=== PATIENT | male | born 1960 | race Caucasian/White ===

== ENCOUNTER → 2018-03-30 15:36 | Outpatient (CLI) | payer MEDICARE, SELFPAY ==
[2018-03-30 16:02] LABS: Bacteria Urine None Seen
[2018-03-30 16:53] LABS: Appearance Urine UA CLEAR; Bilirubin Urine UA NEGATIVE (NEGATIVE); Color Urine UA YELLOW; Glucose Urine UA NEGATIVE (Normal); Ketones Urine UA NEGATIVE (NEGATIVE); Leukocyte Esterase Urine UA NEGATIVE (NEGATIVE); Nitrite Urine UA Negative (Negative); Occult Blood Urine UA 2+ (Negative); Protein Urine UA NEGATIVE (Negative); Urobilinogen Urine UA 0.2 E.U./dL (0.2)
[2018-03-30 17:06] LABS: Culture Indicated Urine Cult Not Indicated; RBC Urine 1-5/HPF (0-5/HPF); Squamous Epithelial Cell Urine 0-1 /HPF; WBC Urine 0-1/HPF (0-5/HPF)
== END ==
PROVIDERS: Family Provider Internal Medicine; PCP Internal Medicine; Visit Provider Internal Medicine
DX: R31.9 Hematuria, unspecified (principal)
CPT/HCPCS: 81001

== ENCOUNTER → 2018-04-23 12:47 | Outpatient (CLI) | payer MEDICARE, SELFPAY ==
--- NOTE | 2018-04-23 | DI.CT.S_ITS ---
PROCEDURE: CT ABDOMEN PELVIS WO/W CON INDICATIONS: gross hematuria TECHNIQUE: Optional 5 mm thick noncontrast images acquired from the diaphragm to the symphysis pubis. After the administration of intravenous contrast, 5 mm thick images acquired from the diaphragm to the symphysis pubis after a 10-minute delay. 2 mm thick coronal and sagittal reformats were then performed of the kidneys and ureters. For radiation dose reduction, the following was used: automated exposure control, adjustment of mA and/or kV according to patient size. COMPARISON: None. FINDINGS: Image quality: Excellent. Lung bases: Lung bases are clear. Heart size is normal. Urinary system: Both kidneys are normal in size, without hydronephrosis or nephrolithiasis on pre-contrast images. No perinephric fat stranding. There is normal bilateral renal enhancement. Renal calyces appear normal in morphology when filled with contrast. Opacified portions of both ureters demonstrate normal caliber. Bladder wall thickness is normal. No calcified bladder stones. Bladder is enlarged with foci of calcification. Other solid organs: There is diffuse hepatic fatty infiltration. Liver is normal in size and enhancement. Gallbladder is contracted. Biliary system is non dilated. Pancreas enhances normally. Spleen is normal in size and enhancement. No adrenal nodules. Peritoneum and bowel: There are colonic diverticula scattered throughout the colon. No evidence for acute diverticulitis. Bowel loops demonstrate normal wall thickness and caliber. Normal appendix. No free fluid or air. Nodes and vessels: No retroperitoneal or mesenteric adenopathy by size criteria. Aorta and inferior vena cava are normal in size. Abdominal wall: No ventral hernias. Pelvis: No pathologic free pelvic fluid. No inguinal hernias or adenopathy. Bones: No suspicious bony lesions. No vertebral body compression fractures. IMPRESSION: 1. No CT findings to explain gross hematuria. No renal stones or hydronephrosis. No uroepithelial mass. 2. Small low-density nodules in the left kidney are most likely renal cysts. 3. Hepatic steatosis. 4. Diverticulosis result acute diverticulitis. Dictated by: Africa Ryan M.D. on 04/23/2018 at 14:05 Approved by: Africa Ryan M.D. on 04/23/2018 at 14:11
== END ==
PROVIDERS: Family Provider Internal Medicine; PCP Internal Medicine; Visit Provider Physician Assistant
DX: R31.0 Gross hematuria (principal); K76.0 Fatty (change of) liver, not elsewhere classified; K57.90 Diverticulosis of intestine, part unspecified, without perforation or abscess without bleeding
CPT/HCPCS: 74178; Q9967

== ENCOUNTER → 2018-07-29 16:59 | Outpatient (CLI) | payer MEDICARE, SELFPAY ==
[2018-07-29 17:50] LABS: Creatinine Urine Random 187.8 mg/dL
[2018-07-29 17:55] LABS: Add Manual Diff / Slide Review NO; Basophils Percent Auto 0.6 % (0-2); Eosinophils Percent Auto 1.2 % (2-4); Hemoglobin 14.8 g/dL (13.5-17.5); Lymphocytes Percent Auto 24.3 % (25-40); Mean Corpuscular HGB Conc 33.7 % (30-36); Mean Corpuscular Hemoglobin 32.3 PG (26-34); Mean Corpuscular Volume 95.8 fL (80-100); Monocytes Percent Auto 8.4 % (3-14); Neutrophils Absolute Auto 5800 /uL (3000-5900); Neutrophils Percent Auto 65.5 % (50-75); Platelet Count 290 X10^3/uL (150-400); Red Cell Distribution Width 13.5 % (11.6-14.8); White Blood Cell Count 8.9 X10^3/uL (4.5-11.0)
[2018-07-29 17:55] LABS: Microalbumi Creatinin Ratio Ur 7.9 ug/mg CR (<30); Microalbumin Urine Random 1.5 mg/dL (0-1.6)
[2018-07-29 18:22] LABS: Hemoglobin A1C% w Est Avg Glu 6.8 % (4.0-6.0)
[2018-07-29 18:36] LABS: Alanine Aminotransferase 98 IU/L (21-72); Albumin 4.3 g/dL (3.5-5.0); Albumin Globulin Ratio 1.6 (1.0-2.8); Alkaline Phosphatase 138 U/L (38-126); Aspartate Aminotransferase 89 IU/L (17-59); BUN Creatinine Ratio 14.4 (6-22); Bilirubin Total 0.4 mg/dL (0.2-1.3); Blood Urea Nitrogen 13 mg/dL (9-20); Calcium 9.7 mg/dL (8.4-10.2); Carbon Dioxide 28 mmol/L (22-32); Chloride 100 mmol/L (98-107); Cholesterol 179 mg/dL (140-199); Estimated Glomerular Filt Rate > 60.0 mL/min (>60); Globulin 2.7 g/dL (1.7-4.1); Glucose 130 mg/dL (70-100); HDL Cholesterol 55 mg/dL (40-60); HEMOLYSIS < 15 (0-50); LDL Cholesterol Calculated 91 mg/dL (<100); Potassium 4.6 mmol/L (3.4-5.1); Sodium 139 mmol/L (137-145); Triglycerides 165 mg/dL (35-150)
[2018-07-29 19:07] LABS: Prostate Specific Antigen Scrn 1.76 ng/mL (0.1-4.0)
== END ==
PROVIDERS: PCP Internal Medicine; Visit Provider Internal Medicine
DX: E11.9 Type 2 diabetes mellitus without complications (principal); E78.2 Mixed hyperlipidemia; I10 Essential (primary) hypertension; Z12.5 Encounter for screening for malignant neoplasm of prostate
CPT/HCPCS: 36415; 80053; 80061; 82043; 82570; 83036; 85025; G0103

== ENCOUNTER 2018-09-28 10:12 | Day surgery (SDC) | payer MEDICARE, SELFPAY ==
[2018-09-28] VITALS (10 sets, daily range): BP systolic 82–155; BP diastolic 60–102; PULSE 68–96; RESP 14–20; TEMP 36–36.9; O2SAT 91–100; BMI 21.9
--- NOTE | 2018-09-28 | PATH_ITS ---
[facility] Accession Number: [id number] . 01 Material submitted: . PART A: ANTRAL BIOPSIES PART B: SIGMOID POLYP AT 25CM . 02 Diagnosis: A. Antrum, Biopsies: Helicobacter pylori gastritis. Helicobacter organisms seen on H/E stain. Negative for intestinal metaplasia, dysplasia or malignancy. . B. Sigmoid Colon Polyp at 25 cm: Hyperplastic polyp. MRV/09/29/2018 . 02 Electronically signed: . Colton Bishop MD, PhD, Pathologist NPI- [id number] . 01 Gross description: . Received two formalin-filled containers, both labeled with the patient's name: . A. In a container labeled antral, are three 0.1-0.3 cm portions of tissue, entirely submitted in cassette A. B. In a container labeled sigmoid polyp at 25 cm, are four 0.2-0.5 cm portions of tissue, entirely submitted in cassette B. ([id number]) /FRR . 02 Pathologist provided ICD-10: K29.70, B96.81, K63.5 . 02 CPT . 027716, 084900 Performed at: 01 [facility] [address] [facility], [place], [place] [id number] MD Florentino Myles MD Phone: [phone] Performed at: 02 [facility] [address] [place], [place] [id number] MD Maile Granados MD Phone: [phone]
[2018-09-28] MEDS: LACTATED RINGERS 1,000 ML 42 ML IV (10:41)
--- NOTE | 2018-09-28 10:44 | PM.PREOP ---
Pre-operative Note Interval Note Pre-op Check: Yes History & Physical Reviewed by Physician and Yes Exam Performed Changes: No H&P completed within 30 days and has changed as indicated here:: Patient seen and examined again in the preoperative area today. History and physical examination as documented on September 08, 2018 has not changed. Proceed with EGD and colonoscopy under anesthesia today as planned.
[2018-09-28] MEDS: MIDAZOLAM 2 MG/2 ML VIAL IV (10:53)
--- NOTE | 2018-09-28 11:30 | PM.OP.1 ---
Operative Date/Time/Diagnoses Date of procedure: 09/28/18 Time of procedure: 11:30 Pre-op diagnosis: Dysphagia and colorectal screening Post-op diagnosis: other (Mild gastritis and sigmoid colon polyp in conjunction with pandiverticulosis but otherwise normal studies) Procedure & Clinicians Procedure: 1. Esophagogastroduodenoscopy with cold forceps biopsies 2. Colonoscopy with cold forceps polypectomy Same procedure as scheduled: Yes Indications: 58-year-old male who presented with dysphagia and mild hoarseness. He also requires colorectal screening by age criteria. He was recommended undergo EGD and colonoscopy. Because of his significant cardiac disease and alcohol habit he was recommended to undergo the procedure with anesthesia. Surgeon: Esvin Jarvis Click Yes if Unassisted: Yes Anesthesia Type: General Operative Notes Findings: 1. Normal larynx 2. Normal esophagus without evidence of stricture or esophagitis. No neoplasms. 3. Z-line at 36 cm from the incisors 4. Mild antral gastritis but no evidence of gastric ulcers or neoplasm 5. Normal pylorus and duodenum to the 2nd portion 6. No significant hiatal hernia 7. Beck diverticulosis but without inflammation or stricture. No hemorrhage 8. Polyp at the sigmoid colon approximately 25 cm from anal verge removed with cold forceps 9. Grade 3 internal hemorrhoids without inflammation or thrombosis currently 10. No obvious pathology to explain dysphagia. Consider dysmotility. Closure Type: not applicable Specimen(s): other (1. Antral biopsies 2. Sigmoid colon polyp at 25 cm) Implants & Drains: None Estimated Blood Loss (mL): 10 Blood products transfused: none Procedure in detail: After obtaining informed consent the patient was brought to the operating room and left supine on the gurney. He was placed in left lateral decubitus position and a bite block was inserted. SCOAP time out was performed per standard protocol. Anesthesia was induced. Gastroscope was inserted through the bite block over the tongue to the upper esophageal sphincter which was readily intubated. Under direct visualization of the esophageal lumen the scope was advanced into the stomach which was insufflated easily with air. Pylorus was patent and easily intubated. Scope was advanced to the distal 2nd portion the duodenum. Scope was slowly withdrawn and the bowel was meticulously and circumferentially examined. Findings are as above. Scope was removed and this portion the procedure was terminated. Bite block was removed. Attention was turned to colonoscopy. Digital rectal examination was performed and other than hemorrhoid disease there were no abnormalities or masses. Colonoscope was then inserted and the bowel insufflated with carbon dioxide. Under direct visualization of the colonic lumen the scope was advanced to the cecum where the appendiceal orifice and ileocecal valve were identified. Bowel preparation was excellent. Scope was slowly withdrawn and the bowel was meticulously and circumferentially examined. Findings are as above. Retroflexed view of the distal rectum and anus revealed no other abnormalities except hemorrhoids. Total withdrawal time of the scope was 8 min and 40 sec. Scope was removed and the procedure terminated. Patient taken recovery in stable condition after reversal of anesthesia. Complications: none Condition: stable Disposition: PACU Plan for aftercare: 1. Discharge to home 2. Follow up with primary care physician within the next month
--- NOTE | 2018-09-28 12:20 | SUR.PHASEII ---
\Report given to Meme Canales RN.
--- NOTE | 2018-09-28 12:59 | SUR.PHASEII ---
At pt. bedside to see how pt. is doing, pt. dozing, easy to wake with voice. Asked pt. if he felt ready to go home at this time, pt. replied just waiting for these cramps to subside. This author recommended that the pt. reposition self side to side to aide in the minimizing crampy feeling. HOB elevated to approx 45 degrees. Pt. took in water at this time, no nausea reported. Pt. closed eyes and allowed to rest.
== END 2018-09-28 13:27 | disposition home or self-care (01) ==
PROVIDERS: PCP Internal Medicine; Visit Provider Surgery
PROC: 0DJD8ZZ Inspection of Lower Intestinal Tract, Via Natural or Artificial Opening Endoscopic (ICD-10-PCS; CPT 45378; 2018-09-28 11:15)
PROC: 0DJ08ZZ Inspection of Upper Intestinal Tract, Via Natural or Artificial Opening Endoscopic (ICD-10-PCS; CPT 43235; 2018-09-28 11:15)
DX: Z12.11 Encounter for screening for malignant neoplasm of colon (principal); R13.10 Dysphagia, unspecified; E11.9 Type 2 diabetes mellitus without complications; I10 Essential (primary) hypertension; E78.5 Hyperlipidemia, unspecified; I25.10 Atherosclerotic heart disease of native coronary artery without angina pectoris; F41.9 Anxiety disorder, unspecified; I25.2 Old myocardial infarction; F17.210 Nicotine dependence, cigarettes, uncomplicated; Z79.01 Long term (current) use of anticoagulants; K29.60 Other gastritis without bleeding; B96.81 Helicobacter pylori [H. pylori] as the cause of diseases classified elsewhere; K63.5 Polyp of colon; K57.30 Diverticulosis of large intestine without perforation or abscess without bleeding; K64.2 Third degree hemorrhoids
CPT/HCPCS: 45380; 43239; 88305; J2250; J3010

== ENCOUNTER → 2019-08-08 16:39 | Outpatient (CLI) | payer MEDICARE, SELFPAY ==
[2019-08-08 17:52] LABS: Hemoglobin A1C% w Est Avg Glu 6.2 % (4.0-6.0)
[2019-08-08 18:09] LABS: Alanine Aminotransferase 44 IU/L (21-72); Albumin 4.4 g/dL (3.5-5.0); Albumin Globulin Ratio 1.5 (1.0-2.8); Alkaline Phosphatase 106 U/L (38-126); Aspartate Aminotransferase 39 IU/L (17-59); BUN Creatinine Ratio 15.6 (6-22); Bilirubin Total 0.4 mg/dL (0.2-1.3); Blood Urea Nitrogen 14 mg/dL (9-20); Calcium 9.8 mg/dL (8.4-10.2); Carbon Dioxide 30 mmol/L (22-32); Chloride 100 mmol/L (98-107); Cholesterol 215 mg/dL (140-199); Estimated Glomerular Filt Rate > 60.0 mL/min (>60); Globulin 2.9 g/dL (1.7-4.1); Glucose 119 mg/dL (70-100); HDL Cholesterol 63 mg/dL (40-60); HEMOLYSIS < 15 (0-50); LDL Cholesterol Calculated 110 mg/dL (<100); Potassium 5.1 mmol/L (3.4-5.1); Sodium 138 mmol/L (137-145); Total Protein 7.3 g/dL (6.3-8.2); Triglycerides 209 mg/dL (35-150)
[2019-08-08 18:33] LABS: Creatinine Urine Random 149.7 mg/dL
[2019-08-08 18:37] LABS: Microalbumi Creatinin Ratio Ur 11.3 ug/mg CR (<30); Microalbumin Urine Random 1.7 mg/dL (0-1.6)
== END ==
PROVIDERS: PCP Internal Medicine; Visit Provider Internal Medicine
DX: E11.9 Type 2 diabetes mellitus without complications (principal); E78.2 Mixed hyperlipidemia; I10 Essential (primary) hypertension
CPT/HCPCS: 36415; 80053; 80061; 82043; 82570; 83036

== ENCOUNTER → 2020-08-08 14:23 | Outpatient (CLI) | payer MEDICARE, SELFPAY ==
[2020-08-08 14:58] LABS: Hemoglobin A1C% w Est Avg Glu 6.9 % (4.0-6.0)
[2020-08-08 15:25] LABS: Alanine Aminotransferase 48 IU/L (<50); Albumin 4.5 g/dL (3.5-5.0); Albumin Globulin Ratio 1.6 (1.0-2.8); Alkaline Phosphatase 97 U/L (38-126); Aspartate Aminotransferase 45 IU/L (17-59); BUN Creatinine Ratio 17.2 (6-22); Bilirubin Total 0.5 mg/dL (0.2-1.3); Blood Urea Nitrogen 20 mg/dL (9-20); Calcium 9.6 mg/dL (8.4-10.2); Carbon Dioxide 30 mmol/L (22-32); Chloride 101 mmol/L (98-107); Cholesterol 198 mg/dL (140-199); Estimated Glomerular Filt Rate > 60.0 mL/min (>60); Globulin 2.8 g/dL (1.7-4.1); Glucose 113 mg/dL (70-100); HDL Cholesterol 61 mg/dL (40-60); HEMOLYSIS < 15 (0-50); LDL Cholesterol Calculated 94 mg/dL (<100); Potassium 4.8 mmol/L (3.4-5.1); Sodium 137 mmol/L (137-145); Total Protein 7.3 g/dL (6.3-8.2); Triglycerides 217 mg/dL (35-150)
[2020-08-08 15:51] LABS: Prostate Specific Antigen Scrn 1.25 ng/mL (0.1-4.0)
== END ==
PROVIDERS: PCP Internal Medicine; Referring Provider Internal Medicine; Visit Provider Internal Medicine
DX: I10 Essential (primary) hypertension (principal); E78.2 Mixed hyperlipidemia; E11.9 Type 2 diabetes mellitus without complications; Z12.5 Encounter for screening for malignant neoplasm of prostate
CPT/HCPCS: 36415; 80053; 80061; 83036; G0103

== ENCOUNTER → 2020-11-13 13:40 | Outpatient (CLI) | payer MEDICARE, SELFPAY ==
--- NOTE | 2020-11-13 | DI.RAD.S_ITS ---
PROCEDURE: FL BARIUM SWALLOW INDICATIONS: Dysphagia, pharyngoesophageal phase COMPARISON: None. FINDINGS: Function: There is normal esophageal peristalsis. No elicited gastroesophageal reflux. There is normal transit of a calibrated barium tablet through the esophagus into the stomach. Morphology: Air-contrast images demonstrate normal mucosal morphology. There is a [id number] sliding hiatal hernia IMPRESSION: Nolk-wg-upxwefcy sliding hiatal hernia Dictated by: Luke Angel M.D. on 11/13/2020 at 15:36 Approved by: Luke Angel M.D. on 11/13/2020 at 15:43
== END ==
PROVIDERS: PCP Internal Medicine; Referring Provider Internal Medicine; Visit Provider Otolaryngology
DX: R13.14 Dysphagia, pharyngoesophageal phase (principal); K44.9 Diaphragmatic hernia without obstruction or gangrene
CPT/HCPCS: 74221

== ENCOUNTER → 2021-01-11 14:33 | Outpatient (CLI) | payer MEDICARE, SELFPAY ==
[2021-01-11] MEDS: COVID-19 VACC #1, MRNA(MOD) 100 MCG/0.5 ML VIAL IM (14:37)
== END ==
PROVIDERS: PCP Internal Medicine; Visit Provider Internal Medicine
DX: Z23 Encounter for immunization (principal)
CPT/HCPCS: 0011A; 91301

== ENCOUNTER → 2021-02-08 14:27 | Outpatient (CLI) | payer MEDICARE, SELFPAY ==
[2021-02-08] MEDS: COVID-19 VACC #2, MRNA(MOD) 100 MCG/0.5 ML VIAL IM (14:33)
== END ==
PROVIDERS: PCP Internal Medicine; Visit Provider Internal Medicine
DX: Z23 Encounter for immunization (principal)
CPT/HCPCS: 0012A; 91301

== ENCOUNTER → 2021-09-20 17:28 | Outpatient (CLI) | payer MEDICARE, SELFPAY ==
[2021-09-20 19:15] LABS: Alanine Aminotransferase 45 IU/L (<50); Albumin 4.4 g/dL (3.5-5.0); Albumin Globulin Ratio 1.5 (1.0-2.8); Alkaline Phosphatase 112 U/L (38-126); Aspartate Aminotransferase 54 IU/L (17-59); BUN Creatinine Ratio 12.8 (6-22); Bilirubin Total 0.6 mg/dL (0.2-1.3); Blood Urea Nitrogen 15 mg/dL (9-20); Calcium 9.7 mg/dL (8.4-10.2); Carbon Dioxide 28 mmol/L (22-32); Chloride 100 mmol/L (98-107); Cholesterol 191 mg/dL (140-199); Estimated Glomerular Filt Rate > 60.0 mL/min (>60); Globulin 2.9 g/dL (1.7-4.1); Glucose 134 mg/dL (80-110); HDL Cholesterol 54 mg/dL (40-60); HEMOLYSIS < 15 (0-50); Hemoglobin A1C% w Est Avg Glu 6.8 % (4.0-6.0); LDL Cholesterol Calculated 90 mg/dL (<100); Potassium 4.2 mmol/L (3.4-5.1); Sodium 137 mmol/L (137-145); Total Protein 7.3 g/dL (6.3-8.2); Triglycerides 233 mg/dL (35-150)
[2021-09-20 19:44] LABS: Prostate Specific Antigen Scrn 5.73 ng/mL (0.1-4.0)
== END ==
PROVIDERS: PCP Internal Medicine; Referring Provider Internal Medicine; Visit Provider Internal Medicine
DX: E11.9 Type 2 diabetes mellitus without complications (principal); Z12.5 Encounter for screening for malignant neoplasm of prostate; E78.2 Mixed hyperlipidemia; I10 Essential (primary) hypertension
CPT/HCPCS: 36415; 80053; 80061; 83036; G0103

== ENCOUNTER → 2021-10-03 16:31 | Outpatient (CLI) | payer MEDICARE, SELFPAY ==
[2021-10-04 08:01] LABS: PSA, Total 2.7 ng/mL (0.0-4.0)
== END ==
PROVIDERS: PCP Internal Medicine; Referring Provider Internal Medicine; Visit Provider Internal Medicine
DX: R97.20 Elevated prostate specific antigen [PSA] (principal)
CPT/HCPCS: 36415; 84153; 84154

== ENCOUNTER → 2022-05-02 17:19 | Outpatient (CLI) | payer MEDICARE, SELFPAY ==
[2022-05-02 18:12] LABS: Hemoglobin A1C% w Est Avg Glu 7.1 % (4.0-6.0)
[2022-05-02 18:15] LABS: Alanine Aminotransferase 69 IU/L (<50); Albumin 4.6 g/dL (3.5-5.0); Albumin Globulin Ratio 1.4 (1.0-2.8); Alkaline Phosphatase 104 U/L (38-126); Aspartate Aminotransferase 57 IU/L (17-59); BUN Creatinine Ratio 17.3 (6-22); Bilirubin Total 0.7 mg/dL (0.2-1.3); Blood Urea Nitrogen 19 mg/dL (9-20); Calcium 9.4 mg/dL (8.4-10.2); Carbon Dioxide 24 mmol/L (22-32); Chloride 101 mmol/L (98-107); Cholesterol 226 mg/dL (140-199); Estimated Glomerular Filt Rate > 60 mL/min (>60); Globulin 3.2 g/dL (1.7-4.1); Glucose 138 mg/dL (80-110); HDL Cholesterol 62 mg/dL (40-60); HEMOLYSIS < 15 (0-50); LDL Cholesterol Calculated 110 mg/dL (<100); Potassium 4.4 mmol/L (3.4-5.1); Sodium 136 mmol/L (137-145); Total Protein 7.8 g/dL (6.3-8.2); Triglycerides 271 mg/dL (35-150)
[2022-05-02 19:12] LABS: Creatinine Urine Random 141.4 mg/dL
[2022-05-02 19:15] LABS: Microalbumi Creatinin Ratio Ur 34.6 ug/mg CR (<30); Microalbumin Urine Random 4.9 mg/dL (0-1.6)
== END ==
PROVIDERS: PCP Internal Medicine; Referring Provider Internal Medicine; Visit Provider Internal Medicine
DX: E11.9 Type 2 diabetes mellitus without complications (principal); E78.2 Mixed hyperlipidemia; I10 Essential (primary) hypertension
CPT/HCPCS: 36415; 80053; 80061; 82043; 82570; 83036

== ENCOUNTER → 2023-03-27 17:29 | Outpatient (CLI) | payer MEDICARE, SELFPAY ==
[2023-03-27 18:19] LABS: Add Manual Diff / Slide Review NO; Basophils Absolute Auto 100 /uL (0-100); Basophils Percent Auto 0.5 % (0-2); Eosinophils Absolute Auto 100 /uL (0-450); Eosinophils Percent Auto 1.2 % (2-4); Hematocrit 44.5 % (41-53); Hemoglobin 15.1 g/dL (13.5-17.5); Lymphocytes Absolute Auto 2100 /uL (1100-4500); Lymphocytes Percent Auto 21.2 % (25-40); Mean Corpuscular HGB Conc 33.9 % (30-36); Mean Corpuscular Hemoglobin 31.7 PG (26-34); Mean Corpuscular Volume 93.5 fL (80-100); Monocytes Absolute Auto 1100 /uL (0-900); Monocytes Percent Auto 11.3 % (3-14); Neutrophils Absolute Auto 6500 /uL (1500-7000); Neutrophils Percent Auto 65.8 % (50-75); Platelet Count 315 X10^3/uL (150-400); Red Blood Cell Count 4.76 X10^6/uL (4.5-5.9); Red Cell Distribution Width 14.7 % (11.6-14.8); White Blood Cell Count 9.9 X10^3/uL (4.5-11.0)
[2023-03-27 18:28] LABS: Alanine Aminotransferase 84 IU/L (<50); Albumin 4.2 g/dL (3.5-5.0); Albumin Globulin Ratio 1.2 (1.0-2.8); Alkaline Phosphatase 133 U/L (38-126); Aspartate Aminotransferase 78 IU/L (17-59); BUN Creatinine Ratio 13.2 (6-22); Bilirubin Total 0.7 mg/dL (0.2-1.3); Blood Urea Nitrogen 15 mg/dL (9-20); Calcium 9.1 mg/dL (8.4-10.2); Carbon Dioxide 28 mmol/L (22-32); Chloride 100 mmol/L (98-107); Cholesterol 201 mg/dL (140-199); Estimated Glomerular Filt Rate > 60 mL/min (>60); Globulin 3.6 g/dL (1.7-4.1); Glucose 157 mg/dL (80-110); HDL Cholesterol 49 mg/dL (40-60); HEMOLYSIS < 15 (0-50); LDL Cholesterol Calculated 113 mg/dL (<100); Potassium 4.9 mmol/L (3.4-5.1); Sodium 136 mmol/L (137-145); Total Protein 7.8 g/dL (6.3-8.2); Triglycerides 195 mg/dL (35-150)
[2023-03-27 19:22] LABS: Creatinine Urine Random 166.5 mg/dL
[2023-03-29 10:05] LABS: Labcorp Hemoglobin (Hb) A1c 7.4 % (4.8-5.6)
== END ==
PROVIDERS: PCP Internal Medicine; Referring Provider Internal Medicine; Visit Provider Internal Medicine
DX: E11.9 Type 2 diabetes mellitus without complications (principal); E78.2 Mixed hyperlipidemia; I10 Essential (primary) hypertension
CPT/HCPCS: 36415; 80053; 80061; 82043; 82570; 83036; 85025

== ENCOUNTER → 2023-05-15 14:15 | Outpatient (CLI) | payer MEDICARE, SELFPAY | PROVIDERS: PCP Internal Medicine; Referring Provider Internal Medicine; Visit Provider Internal Medicine | DX: R06.00 Dyspnea, unspecified (principal); R06.02 Shortness of breath | CPT/HCPCS: 94060; 94726; 94729 ==

== ENCOUNTER → 2023-06-08 15:03 | Outpatient (CLI) | payer MEDICARE, SELFPAY ==
--- NOTE | 2023-06-08 15:06 | DI.RAD.S_ITS ---
PROCEDURE: XR CHEST 2V INDICATIONS: dyspnea TECHNIQUE: 2 views of the chest were acquired. COMPARISON: [facility], , CHEST 2 VIEW, 09/01/2007, 21:27. FINDINGS: Surgical changes and devices: None. Lungs and pleura: Lungs are clear. No pleural effusions or pneumothorax. Mediastinum: Mediastinal contours are normal. Heart size is normal. Bones and chest wall: No suspicious bony abnormalities. Soft tissues appear unremarkable. IMPRESSION: No acute cardiopulmonary disease. Dictated by: Meli Sánchez M.D. on 06/08/2023 at 17:54 Approved by: Meli Sánchez M.D. on 06/08/2023 at 17:54
== END ==
PROVIDERS: PCP Internal Medicine; Referring Provider Internal Medicine; Visit Provider Internal Medicine
DX: R06.00 Dyspnea, unspecified (principal)
CPT/HCPCS: 71046

== ENCOUNTER 2024-11-25 12:35 | Inpatient (IN) | payer MEDICARE, SELFPAY ==
[2024-11-25] VITALS (119 sets, daily range): BP systolic 77–159; BP diastolic 48–98; PULSE 82–155; RESP 16–33; TEMP 30.2–36.5; O2SAT 37–100; BMI 23.5
--- NOTE | 2024-11-25 12:43 | DI.CT.S_ITS ---
PROCEDURE: CT ANGIO CHEST PE PROTOCOL INDICATIONS: hypoxic and blue TECHNIQUE: After the administration of intravenous contrast, 2 mm thick sections acquired from the pulmonary apices to the posterior costophrenic angles. 3-dimensional maximum intensity projection (MIP) coronal and sagittal reformats were then acquired through the thorax. For radiation dose reduction, the following was used: automated exposure control, adjustment of mA and/or kV according to patient size. COMPARISON: None. FINDINGS: Image quality: Diagnostic. Pulmonary arteries: Pulmonary arteries are normal in size, and demonstrate no intraluminal filling defects to suggest central pulmonary embolism. Lower Neck: No enlarged lymph nodes. Thyroid: No thyroid nodules which require sonographic follow up, per consensus guidelines. Axillae: No enlarged lymph nodes. Chest Wall: Unremarkable. Bones: Unremarkable. Lungs and Pleura: No pneumothorax or pleural effusions. Scattered airspace opacities are noted in posterior aspect of bilateral lower lobes. Subtle small airspace opacities are seen scattered in posterior aspect of bilateral lower lobes and right upper lobe with tree-in-bud appearance. Mild bronchiectasis in bilateral lower lobes are also seen. Heart: Heart size is normal. No pericardial effusion. Thoracic Vessels: No aortic aneurysm. Mediastinum and Rubi: No enlarged lymph nodes. Esophagus: No wall thickening. No hiatal hernia. Upper Abdomen: Visualized upper abdomen solid organs and bowel loops appear normal. IMPRESSION: 1. No pulmonary embolus. No thoracic aortic aneurysm or gross dissection. 2. Scattered airspace opacities in posterior aspect of bilateral lung adams worse on the right side with tree-in-bud appearance suggestive of small airway disease. Additional airspace opacities also noted in posterior aspect of bilateral lower lobes near lung bases with bronchiectasis suggestive of additional lower lobe infiltrates. No pleural effusion or pneumothorax. 3. No gross mediastinal or hilar lymphadenopathy.. Heart size is normal, no pericardial effusion. Dictated by: Artis Mathis M.D. on 11/25/2024 at 13:36 Approved by: Artis Mathis M.D. on 11/25/2024 at 14:01
--- NOTE | 2024-11-25 12:46 | EKG_ITS ---
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
[2024-11-25] MEDS: SODIUM CHLORIDE 0.9% 1,000 ML 1000 ML IV (12:53)
[2024-11-25] MEDS: methylPREDNISolone 125 MG/2 ML VIAL IV (12:56)
[2024-11-25 13:00] LABS: Allen Test for ABG Passed? Positive; Base Excess ABG -8.1 mmol/L (-2-3); Blood Gas Collection Site Left Radial; Delivery System BiPAP; HCO3 ABG 16 mmol/L (23-27); Oxygen Saturation ABG 100 % (95-100); PCO2 ABG 27.7 mmHg (35-45); PO2 ABG 334 mmHg (80-100); TCO2 ABG 15 mmol/L (23-27); pH ABG 7.36 (7.35-7.45)
[2024-11-25] MEDS: NOREPINEPHRINE BITARTRATE/D5W 4 MG/250 ML PLAST..BAG 24.494 MG IV (13:26)
[2024-11-25 13:27] LABS: INR 1.4 (0.9-1.3); Prothrombin Time 16.2 SECONDS (9.4-12.5)
[2024-11-25 13:30] LABS: PTT Partial Thromboplastin Tim 38 SECONDS (25.1-36.5)
[2024-11-25 13:33] LABS: Alanine Aminotransferase 80 IU/L (<50); Albumin Globulin Ratio 0.9 (1.0-2.8); Alkaline Phosphatase 287 U/L (38-126); Aspartate Aminotransferase 104 IU/L (17-59); BUN Creatinine Ratio 11.3 (6-22); Bilirubin Total 1.9 mg/dL (0.2-1.3); Blood Urea Nitrogen 37 mg/dL (9-20); Calcium 9.3 mg/dL (8.4-10.2); Carbon Dioxide 14 mmol/L (22-32); Chloride 92 mmol/L (98-107); Creatine Kinase 240 U/L (55-170); Estimated Glomerular Filt Rate 20 mL/min (>60); Globulin 4.4 g/dL (1.7-4.1); Glucose 237 mg/dL (80-110); HEMOLYSIS < 15 (0-50); Lipase 97 U/L (23-300); Potassium 4.1 mmol/L (3.4-5.1); Sodium 130 mmol/L (137-145); Total Protein 8.4 g/dL (6.3-8.2)
[2024-11-25 13:36] LABS: Lactate (Lactic Acid) 9.5 mmol/L (0.7-2.1)
[2024-11-25 13:43] LABS: NT-proBNP (BNP-Adult 18+) 572 pg/mL (<125)
[2024-11-25 13:45] LABS: Troponin I 0.048 ng/mL (0.01-0.034)
[2024-11-25] MEDS: PIPERACILLIN/TAZO 4.5 GM in SODIUM CHLORIDE 0.9% 100 ML IV (13:50)
[2024-11-25 13:52] LABS: Basophils Absolute Auto 200 /uL (0-100); Basophils Percent Auto 0.6 % (0-2); Eosinophils Absolute Auto 0 /uL (0-450); Eosinophils Percent Auto 0.1 % (2-4); Hematocrit 45.9 % (41-53); Hemoglobin 15.7 g/dL (13.5-17.5); Lymphocytes Absolute Auto 1200 /uL (1100-4500); Lymphocytes Percent Auto 4.6 % (25-40); Mean Corpuscular HGB Conc 34.3 % (30-36); Mean Corpuscular Hemoglobin 32.7 PG (26-34); Mean Corpuscular Volume 95.4 fL (80-100); Monocytes Absolute Auto 600 /uL (0-900); Monocytes Percent Auto 2.2 % (3-14); Neutrophils Absolute Auto 24100 /uL (1500-7000); Neutrophils Percent Auto 92.5 % (50-75); Red Blood Cell Count 4.81 X10^6/uL (4.5-5.9); Red Cell Distribution Width 13.8 % (11.6-14.8); White Blood Cell Count 26.1 X10^3/uL (4.5-11.0)
[2024-11-25 13:55] LABS: Add Manual Diff / Slide Review SLIDE REVIEW; Platelet Count 324 X10^3/uL (150-400)
[2024-11-25] MEDS: LIDOCAINE 2% (GLYDO) 6 ML GEL TOP (14:08)
[2024-11-25 14:11] LABS: Adenovirus Not Detected (Not Detect); B. parapertussis Not Detected (Not Detecte); Bordetella pertussis Not Detected (Not Detect); Chlamydophila pneumoniae Not Detected (Not Detect); Coronavirus 229E Not Detected (Not Detect); Coronavirus HKU1 Not Detected (Not Detect); Coronavirus NL 63 Not Detected (Not Detect); Coronavirus OC43 Not Detected (Not Detect); Human Metapneumovirus Not Detected (Not Detect); Human Rhinovirus/Enterovirus Not Detected (Not Detect); Influenza A Equivocal (Not Detect); Influenza B Not Detected (Not Detect); Mycoplasma pneumoniae Not Detected (Not Detect); Parainfluenza Virus 1 Not Detected (Not Detect); Parainfluenza Virus 2 Not Detected (Not Detect); Parainfluenza Virus 3 Not Detected (Not Detect); Parainfluenza Virus 4 Not Detected (Not Detect); Respiratory Syncytial Virus Not Detected (Not Detect); SARS- CoV-2 Not Detected (Not Detecte)
[2024-11-25 14:14] LABS: Neutrophils Absolute Manual 22968 /uL (3000-5900); Total Cells Counted 100
[2024-11-25 14:15] LABS: RBC Morphology Normal Morphology
--- NOTE | 2024-11-25 14:18 | ED_ITS ---
HPI - SOB/Dyspnea General Chief Complaint: Shortness of Breath/Dyspnea Stated Complaint: Difficulty Breathing Time Seen by Provider: 11/25/24 12:42 Source: EMS Mode of arrival: EMS Limitations: physical limitation History of Present Illness HPI Narrative: Patient is a 64-year-old male history of COPD coronary artery disease hypertension type 2 diabetes supraventricular tachycardia presenting today with significant shortness of breath. He reports that he recently had COVID but started feeling more short of breath yesterday. EMS reports that he was quite hypoxic in field he was given DuoNeb treatments in his still hypoxic. Upon arrival he was in moderate to severe respiratory distress and mottled in his torso and arms. Immediately placed BiPAP, which he tolerated well Related Data Home Medications Medication Instructions Recorded Confirmed aspirin 81 mg tablet,delayed 81 mg PO QDAY #30 tabs 08/08/16 11/26/24 release nitroglycerin 0.4 mg sublingual 0.4 mg sublingual PRN PRN Chest 08/08/16 11/26/24 tablet (Nitrostat) Pain #0 tabs Previous Rx's Medication Instructions Recorded albuterol sulfate 90 mcg/actuation 2 puff inhalation Q6H PRN 06/08/23 aerosol inhaler shortness of breath or wheezing #8.5 grams sildenafil 100 mg tablet 100 mg PO ONCE #30 tabs 06/16/23 venlafaxine 150 mg 150 mg PO DAILY #90 caps 03/17/24 capsule,extended release 24 hr alprazolam 0.5 mg tablet 0.5 mg PO BEDTIME PRN anxiety #90 06/15/24 tabs losartan 50 mg tablet 50 mg PO DAILY #90 tabs 08/15/24 atorvastatin 40 mg tablet 40 mg PO BEDTIME #90 tabs 09/05/24 clopidogrel 75 mg tablet 75 mg PO QDAY #90 tabs 11/22/24 metoprolol tartrate 50 mg tablet 50 mg PO BID #180 tabs 11/22/24 Allergies Allergy/AdvReac Type Severity Reaction Status Date / Time No Known Drug Allergies Allergy Verified 06/22/24 14:20 Patient History Medical History COPD (chronic obstructive pulmonary disease) Abnormal LFTs Coronary artery disease involving [place] heart without angina pectoris (~2015) Elevated PSA Diverticular disease of colon Gross hematuria (~04/2018) 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) Right shoulder tendonitis (1995) Anxiety (1999) Chronic back pain (2004) Chicken pox (1965) Hemorrhoids (2004) CT (myocardial infarction) (07/18/16) Supraventricular tachycardia (08/13/15) Mixed hyperlipidemia (08/13/15) Recurrent major depressive disorder, in full remission (08/13/15) Type 2 diabetes mellitus without complication (01/18/13) Essential hypertension Surgical History History of colonoscopy Anesthesia History of heart artery stent (07/2016) History of hand surgery (1997) History of shoulder surgery (1995) Status post insertion of drug-eluting stent into right coronary artery for coronary artery disease (09/19/16) Family History Father Hypertension Mental health problem Cirrhosis Heart disease Mother Cancer COPD (chronic obstructive pulmonary disease) Lung disease Grandfather No problems noted. Grandmother No problems noted. Grandmother No problems noted. Sister No problems noted. Social History marital status: unmarried,single number of children: 0 household members: none lives independently: Yes caregiver/support person: No housing: house pets and animals: No education level: other (Bachelors degree, some grad schooling.) occupational status: disabled (Disabled retired.) Previous occupational history: [employer] travel history: over 6 months ago ([place]) leisure activities: games ([employer]) and reading Smoking Status: Current every day smoker Tobacco: How many years used: 38 Smokeless tobacco user: other (Cigarettes, Marijuana) quit status: considering quitting second hand exposure: Yes (1st and 2nd hand) alcohol intake: current substance use type: marijuana Smoking Status: Current every day smoker Exam Initial Vital Signs Initial Vital Signs: Vital Signs Pulse Rate 133 H 11/25/24 12:51 Respiratory Rate 30 H 11/25/24 12:51 Blood Pressure 90/55 L 11/25/24 12:51 Oxygen Delivery Method Aerosol Mask 11/25/24 12:51 Oxygen Flow Rate 10 11/25/24 12:51 GENERAL: Alert 64-year-old male in [id number] respiratory distress HEENT: Head atraumatic,EOMI, pupils reactive, face symmetric, [moist] mucous membranes CARDIOVASCULAR: Regular rate and rhythm without murmurs, rubs or gallops. RESPIRATORY: Decreased breath sounds bilaterally wheezing throughout ABDOMEN: Soft, nontender. Normoactive bowel sounds all 4 quadrants. No guarding or rebound. EXTREMITIES: Normal range of motion, no clubbing or edema. Neurovascularly intact NEUROLOGICAL: Alert and oriented x4. Moving all extremities SKIN: Mottling trunk and upper extremities noted no significant erythema rash or urticaria Course Orders Ordered: Acetaminophen (Acetaminophen 325 Mg Tablet) 650 mg PO Q6H PRN PRN Reason: Fever/Mild Pain (1-3) Albuterol (Albuterol 2.5 Mg/3 Ml Neb (Adult)) 2.5 mg INH [id number] [facility] Last Admin: 11/26/24 08:33 Dose: 2.5 mg Documented By: JocelynK Admin: 11/25/24 23:21 Dose: Not Given Documented By: CT Aspirin (Aspirin Ec 81 Mg Tablet) 81 mg PO DAILY [facility] Last Admin: 11/26/24 08:09 Dose: 81 mg Documented By: ESV Atorvastatin Calcium (Atorvastatin 20 Mg Tablet) 40 mg PO BEDTIME [facility] Last Admin: 11/25/24 22:30 Dose: 40 mg Documented By: CT Benzonatate (Benzonatate 100 Mg Capsule) 200 mg PO Q6HR PRN PRN Reason: Cough Last Admin: 11/26/24 00:41 Dose: 200 mg Documented By: CT Clopidogrel Bisulfate (Clopidogrel 75 Mg Tablet) 75 mg PO DAILY [facility] Last Admin: 11/26/24 08:09 Dose: 75 mg Documented By: ESV Enoxaparin Sodium (Enoxaparin 30 Mg/0.3 Ml Syringe) 30 mg SUBCUT DAILY [facility] Last Admin: 11/26/24 08:09 Dose: 30 mg Documented By: ESV Guaifenesin (Guaifenesin Solution 100 Mg/5 Ml Udc) 100 mg PO Q4HR PRN PRN Reason: Cough Last Admin: 11/26/24 00:41 Dose: 100 mg Documented By: CT Sodium Chloride (Normal Saline 0.9%) 1,000 mls @ 150 mls/hr IV CONT [facility] Last Admin: 11/26/24 08:01 Dose: 150 mls/hr Documented By: Infusion: 11/26/24 04:45 Dose: Infused Documented By: Admin: 11/25/24 22:00 Dose: 150 mls/hr Documented By: CT Ampicillin Sodium/Sulbactam (Sodium 3 gm/ Sodium Chloride) 100 mls @ 100 mls/hr IV Q6H [facility] Stop: 11/30/24 21:29 Last Infusion: 11/26/24 04:30 Dose: Infused Documented By: Admin: 11/26/24 03:27 Dose: 100 mls/hr Documented By: Infusion: 11/25/24 23:35 Dose: Infused Documented By: Admin: 11/25/24 22:30 Dose: 100 mls/hr Documented By: CT Azithromycin 500 mg/ Dextrose 250 mls @ 250 mls/hr IV Q24H [facility] Stop: 11/28/24 21:29 Last Infusion: 11/25/24 23:35 Dose: Infused Documented By: Admin: 11/25/24 22:30 Dose: 250 mls/hr Documented By: CT Dextrose (D10w) 100 mls @ 999 mls/hr IV PRN PRN PRN Reason: Hypoglycemia Insulin Human Lispro (Insulin Lispro 100 Unit/Ml 3ml Vial) 0 unit SUBCUT ACHS [facility]; Protocol Last Admin: 11/26/24 08:01 Dose: 1 unit Documented By: JOYCEV Co-signed By: MS Admin: 11/25/24 22:30 Dose: 2 unit Documented By: CT Co-signed By: FM Methylprednisolone (Methylprednisolone 125 Mg/2 Ml Vial) 60 mg IV Q6HR [facility] Last Admin: 11/26/24 07:22 Dose: 60 mg Documented By: Admin: 11/26/24 00:38 Dose: 60 mg Documented By: CT Naloxone HCl (Naloxone 0.4 Mg/Ml Vial) 0.2 mg IV Q2MIN PRN PRN Reason: Opiate Reversal Pantoprazole Sodium (Pantoprazole 40 Mg Vial) 40 mg IV DAILY [facility] Last Admin: 11/26/24 08:09 Dose: 40 mg Documented By: ESV Venlafaxine HCl (Venlafaxine Er 75 Mg Cap) 150 mg PO DAILY [facility] Last Admin: 11/26/24 08:09 Dose: 150 mg Documented By: ESV Discontinued Medications Sodium Chloride (Normal Saline 0.9%) 1,000 mls @ 1,000 mls/hr IV BOLUS ONE Stop: 11/25/24 13:50 Last Infusion: 11/25/24 15:14 Dose: Infused Documented By: Infusion: 11/25/24 14:01 Dose: Infused Documented By: Admin: 11/25/24 12:53 Dose: 1,000 mls/hr Documented By: OLIVER NOREPINEPHRINE BITARTRATE/D5W (Levophed) 4 mg in 250 mls @ 24.494 mls/hr IV TITRATE [facility]; Protocol Last Titration: 11/25/24 13:34 Dose: 0 mcg/kg/min, 0 mls/hr Documented By: Admin: 11/25/24 13:26 Dose: 0.1 mcg/kg/min, 24.494 mls/hr Documented By: RB Piperacillin Sod/Tazobactam (Sod 4.5 gm/ Sodium Chloride) 100 mls @ 200 mls/hr IV NOW ONE Stop: 11/25/24 13:38 Last Infusion: 11/25/24 14:30 Dose: Infused Documented By: Admin: 11/25/24 13:50 Dose: 200 mls/hr Documented By: DANITA Sodium Chloride (Normal Saline 0.9%) 1,983 mls @ 661 mls/hr 30 ml/kg infuse over 3 hr (1983 ml) IV NOW ONE Stop: 11/25/24 17:19 Last Infusion: 11/25/24 17:30 Dose: Infused Documented By: Admin: 11/25/24 14:28 Dose: 661 mls/hr Documented By: DANITA Sodium Chloride (Normal Saline 0.9%) 1,000 mls @ 125 mls/hr IV CONT [facility] Last Admin: 11/25/24 17:33 Dose: 125 mls/hr Documented By: DANTIA Lidocaine HCl (Lidocaine 2% (Glydo) 6 Ml Gel) 6 ml TOP NOW ONE Stop: 11/25/24 14:07 Last Admin: 11/25/24 14:08 Dose: 6 ml Documented By: DANITA Methylprednisolone (Methylprednisolone 125 Mg/2 Ml Vial) 125 mg IV NOW ONE Stop: 11/25/24 12:43 Last Admin: 11/25/24 12:56 Dose: 125 mg Documented By: SPF Oseltamivir Phosphate (Oseltamivir 75 Mg Capsule) 75 mg PO NOW ONE Stop: 11/25/24 21:31 Last Admin: 11/25/24 22:30 Dose: 75 mg Documented By: CT Vital Signs Vital signs: Vital Signs - 8 hr 11/25/24 12:51 11/25/24 12:55 11/25/24 13:00 Pulse Rate 133 H 134 H Respiratory Rate 30 H 29 H Blood Pressure 90/55 L 112/74 Pulse Oximetry 93 Oxygen Delivery Method Aerosol Mask BiPAP Oxygen Flow Rate 10 Fraction of Inspired Oxygen 11/25/24 13:00 11/25/24 13:05 11/25/24 13:07 Pulse Rate 155 H 150 H Respiratory Rate 33 H 31 H Blood Pressure Pulse Oximetry Oxygen Delivery Method BiPAP Oxygen Flow Rate Fraction of Inspired Oxygen 45 11/25/24 13:09 11/25/24 13:09 11/25/24 13:10 Pulse Rate 146 H Respiratory Rate 30 H Blood Pressure 79/49 L 84/53 L Pulse Oximetry Oxygen Delivery Method Oxygen Flow Rate Fraction of Inspired Oxygen 11/25/24 13:10 11/25/24 13:13 11/25/24 13:13 Pulse Rate 146 H 144 H Respiratory Rate 30 H 30 H Blood Pressure 85/53 L Pulse Oximetry Oxygen Delivery Method Oxygen Flow Rate Fraction of Inspired Oxygen 11/25/24 13:15 11/25/24 13:16 11/25/24 13:16 Pulse Rate 144 H 143 H Respiratory Rate 30 H 29 H Blood Pressure 77/48 L Pulse Oximetry Oxygen Delivery Method Oxygen Flow Rate Fraction of Inspired Oxygen 11/25/24 13:20 11/25/24 13:20 11/25/24 13:20 Pulse Rate 118 H Respiratory Rate 29 H Blood Pressure 117/52 L Pulse Oximetry Oxygen Delivery Method Oxygen Flow Rate Fraction of Inspired Oxygen 45 11/25/24 13:22 11/25/24 13:22 11/25/24 13:24 Pulse Rate 119 H 118 H Respiratory Rate 30 H 31 H Blood Pressure 78/56 L Pulse Oximetry 77 L Oxygen Delivery Method Oxygen Flow Rate Fraction of Inspired Oxygen 11/25/24 13:24 11/25/24 13:25 11/25/24 13:27 Pulse Rate 118 H 115 H Respiratory Rate 30 H 27 H Blood Pressure 84/62 L Pulse Oximetry Oxygen Delivery Method Oxygen Flow Rate Fraction of Inspired Oxygen 11/25/24 13:27 11/25/24 13:30 11/25/24 13:30 Pulse Rate 114 H Respiratory Rate 23 Blood Pressure 88/57 L 133/70 Pulse Oximetry Oxygen Delivery Method Oxygen Flow Rate Fraction of Inspired Oxygen 11/25/24 13:32 11/25/24 13:32 11/25/24 13:34 Pulse Rate 111 H Respiratory Rate 31 H Blood Pressure 159/79 H 142/63 H Pulse Oximetry Oxygen Delivery Method Oxygen Flow Rate Fraction of Inspired Oxygen 11/25/24 13:34 11/25/24 13:35 11/25/24 13:36 Pulse Rate 108 H 108 H Respiratory Rate 29 H 28 H Blood Pressure 101/58 L Pulse Oximetry 86 L 90 L Oxygen Delivery Method Oxygen Flow Rate Fraction of Inspired Oxygen 11/25/24 13:36 11/25/24 13:40 11/25/24 13:40 Pulse Rate 108 H 110 H Respiratory Rate 29 H 30 H Blood Pressure 90/54 L Pulse Oximetry 92 Oxygen Delivery Method Oxygen Flow Rate Fraction of Inspired Oxygen 11/25/24 13:44 11/25/24 13:44 11/25/24 13:45 Pulse Rate 109 H 108 H Respiratory Rate 27 H 28 H Blood Pressure 92/58 L Pulse Oximetry 93 Oxygen Delivery Method Oxygen Flow Rate Fraction of Inspired Oxygen 11/25/24 13:48 11/25/24 13:48 11/25/24 13:50 Pulse Rate 108 H 107 H Respiratory Rate 29 H 29 H Blood Pressure 100/58 L Pulse Oximetry 92 91 Oxygen Delivery Method Oxygen Flow Rate Fraction of Inspired Oxygen 11/25/24 13:53 11/25/24 13:53 11/25/24 13:55 Pulse Rate 110 H 109 H Respiratory Rate 31 H 25 H Blood Pressure 85/56 L Pulse Oximetry 91 Oxygen Delivery Method Oxygen Flow Rate Fraction of Inspired Oxygen 11/25/24 13:56 11/25/24 13:56 11/25/24 14:00 Pulse Rate 109 H Respiratory Rate 28 H Blood Pressure 91/59 L 88/60 L Pulse Oximetry Oxygen Delivery Method Oxygen Flow Rate Fraction of Inspired Oxygen 11/25/24 14:00 11/25/24 14:04 11/25/24 14:04 Pulse Rate 113 H 108 H Respiratory Rate 31 H 28 H Blood Pressure 91/58 L Pulse Oximetry 90 L 93 Oxygen Delivery Method BiPAP Oxygen Flow Rate Fraction of Inspired Oxygen 11/25/24 14:05 11/25/24 14:08 11/25/24 14:08 Pulse Rate 109 H 106 H Respiratory Rate 28 H 24 Blood Pressure 93/59 L Pulse Oximetry 91 95 Oxygen Delivery Method Oxygen Flow Rate Fraction of Inspired Oxygen 11/25/24 14:10 11/25/24 14:12 11/25/24 14:12 Pulse Rate 107 H 110 H Respiratory Rate 26 H 31 H Blood Pressure 107/57 L Pulse Oximetry 97 96 Oxygen Delivery Method Oxygen Flow Rate Fraction of Inspired Oxygen 11/25/24 14:15 11/25/24 14:17 11/25/24 14:17 Pulse Rate 107 H 105 H Respiratory Rate 24 26 H Blood Pressure 87/61 L Pulse Oximetry 98 98 Oxygen Delivery Method Oxygen Flow Rate Fraction of Inspired Oxygen 11/25/24 14:20 11/25/24 14:20 11/25/24 14:24 Pulse Rate 104 H Respiratory Rate 25 H Blood Pressure 83/56 L 83/57 L Pulse Oximetry 98 Oxygen Delivery Method Oxygen Flow Rate Fraction of Inspired Oxygen 11/25/24 14:24 11/25/24 14:25 11/25/24 14:28 Pulse Rate 102 H 102 H Respiratory Rate 23 22 Blood Pressure 86/58 L Pulse Oximetry 99 100 Oxygen Delivery Method Oxygen Flow Rate Fraction of Inspired Oxygen 11/25/24 14:28 11/25/24 14:30 11/25/24 14:32 Pulse Rate 103 H 102 H Respiratory Rate 27 H 21 Blood Pressure 82/55 L Pulse Oximetry 97 98 Oxygen Delivery Method Oxygen Flow Rate Fraction of Inspired Oxygen 11/25/24 14:32 11/25/24 14:35 11/25/24 14:36 Pulse Rate 102 H 102 H 104 H Respiratory Rate 23 19 23 Blood Pressure Pulse Oximetry 97 96 95 Oxygen Delivery Method Oxygen Flow Rate Fraction of Inspired Oxygen 11/25/24 14:36 11/25/24 14:40 11/25/24 14:41 Pulse Rate 100 H Respiratory Rate 20 Blood Pressure 91/56 L 88/62 L Pulse Oximetry 97 Oxygen Delivery Method Oxygen Flow Rate Fraction of Inspired Oxygen 11/25/24 14:41 11/25/24 14:44 11/25/24 14:44 Pulse Rate 99 H 97 H Respiratory Rate 24 21 Blood Pressure 84/55 L Pulse Oximetry 97 97 Oxygen Delivery Method Oxygen Flow Rate Fraction of Inspired Oxygen 11/25/24 14:45 02/14/25 14:48 11/25/24 14:48 Pulse Rate 98 H 96 H Respiratory Rate 21 21 Blood Pressure 80/54 L Pulse Oximetry 98 98 Oxygen Delivery Method Oxygen Flow Rate Fraction of Inspired Oxygen 11/25/24 14:50 11/25/24 14:50 11/25/24 14:55 Pulse Rate 97 H Respiratory Rate 22 Blood Pressure 80/55 L 82/53 L Pulse Oximetry 97 Oxygen Delivery Method Oxygen Flow Rate Fraction of Inspired Oxygen 11/25/24 14:55 11/25/24 15:00 11/25/24 15:00 Pulse Rate 96 H 96 H Respiratory Rate 22 24 Blood Pressure 80/56 L Pulse Oximetry 97 98 Oxygen Delivery Method BiPAP Oxygen Flow Rate Fraction of Inspired Oxygen 11/25/24 15:05 11/25/24 15:05 11/25/24 15:10 Pulse Rate 93 H Respiratory Rate 23 Blood Pressure 84/58 L 87/60 L Pulse Oximetry 98 Oxygen Delivery Method Oxygen Flow Rate Fraction of Inspired Oxygen 11/25/24 15:10 11/25/24 15:15 11/25/24 15:15 Pulse Rate 94 H 94 H Respiratory Rate 22 24 Blood Pressure 84/59 L Pulse Oximetry 97 99 Oxygen Delivery Method BiPAP Oxygen Flow Rate Fraction of Inspired Oxygen 11/25/24 15:20 11/25/24 15:20 11/25/24 15:25 Pulse Rate 93 H Respiratory Rate 24 Blood Pressure 88/59 L 90/62 Pulse Oximetry 99 Oxygen Delivery Method Oxygen Flow Rate Fraction of Inspired Oxygen 11/25/24 15:25 11/25/24 15:30 11/25/24 15:30 Pulse Rate 93 H 92 H Respiratory Rate 25 H 24 Blood Pressure 94/65 Pulse Oximetry 99 100 Oxygen Delivery Method BiPAP Oxygen Flow Rate Fraction of Inspired Oxygen 11/25/24 15:35 11/25/24 15:35 11/25/24 15:40 Pulse Rate 94 H Respiratory Rate 23 Blood Pressure 98/69 101/71 Pulse Oximetry 100 Oxygen Delivery Method Oxygen Flow Rate Fraction of Inspired Oxygen 11/25/24 15:40 11/25/24 15:45 11/25/24 15:50 Pulse Rate 94 H 94 H Respiratory Rate 24 22 Blood Pressure 103/74 Pulse Oximetry 100 100 Oxygen Delivery Method BiPAP Oxygen Flow Rate Fraction of Inspired Oxygen 11/25/24 15:50 11/25/24 15:55 11/25/24 16:00 Pulse Rate 95 H 95 H Respiratory Rate 24 23 Blood Pressure 107/75 Pulse Oximetry 99 99 Oxygen Delivery Method Oxygen Flow Rate Fraction of Inspired Oxygen 11/25/24 16:00 11/25/24 16:05 11/25/24 16:10 Pulse Rate 95 H 97 H 95 H Respiratory Rate 24 23 24 Blood Pressure Pulse Oximetry 99 99 98 Oxygen Delivery Method BiPAP Oxygen Flow Rate Fraction of Inspired Oxygen 11/25/24 16:10 11/25/24 16:15 11/25/24 16:20 Pulse Rate 96 H Respiratory Rate 23 Blood Pressure 118/79 107/74 Pulse Oximetry 99 Oxygen Delivery Method Oxygen Flow Rate Fraction of Inspired Oxygen 11/25/24 16:20 11/25/24 16:25 11/25/24 16:30 Pulse Rate 94 H 95 H Respiratory Rate 22 22 Blood Pressure 106/78 Pulse Oximetry 97 99 Oxygen Delivery Method Oxygen Flow Rate Fraction of Inspired Oxygen 11/25/24 16:30 11/25/24 16:35 11/25/24 16:40 Pulse Rate 96 H 97 H Respiratory Rate 23 23 Blood Pressure 111/79 Pulse Oximetry 99 99 Oxygen Delivery Method BiPAP Oxygen Flow Rate Fraction of Inspired Oxygen 11/25/24 16:40 11/25/24 16:50 11/25/24 16:50 Pulse Rate 96 H 96 H Respiratory Rate 23 24 Blood Pressure 111/81 Pulse Oximetry 99 99 Oxygen Delivery Method BiPAP Oxygen Flow Rate 40 Fraction of Inspired Oxygen 11/25/24 17:00 11/25/24 17:00 11/25/24 17:10 Pulse Rate 94 H Respiratory Rate 20 Blood Pressure 108/75 113/80 Pulse Oximetry 100 Oxygen Delivery Method BiPAP Oxygen Flow Rate 40 Fraction of Inspired Oxygen 11/25/24 17:10 11/25/24 17:20 11/25/24 17:20 Pulse Rate 93 H 94 H Respiratory Rate 23 24 Blood Pressure 112/80 Pulse Oximetry 100 100 Oxygen Delivery Method Oxygen Flow Rate 40 40 Fraction of Inspired Oxygen 11/25/24 17:30 11/25/24 17:30 11/25/24 17:40 Pulse Rate 93 H 96 H Respiratory Rate 25 H 25 H Blood Pressure 115/83 Pulse Oximetry 100 99 Oxygen Delivery Method Oxygen Flow Rate 40 40 Fraction of Inspired Oxygen 11/25/24 17:40 11/25/24 17:50 11/25/24 17:50 Pulse Rate 94 H Respiratory Rate 24 Blood Pressure 149/92 H 143/95 H Pulse Oximetry 100 Oxygen Delivery Method Oxygen Flow Rate 14 Fraction of Inspired Oxygen 11/25/24 18:00 11/25/24 18:00 11/25/24 18:10 Pulse Rate 93 H Respiratory Rate 23 Blood Pressure 140/90 141/93 H Pulse Oximetry 99 Oxygen Delivery Method Oxygen Flow Rate 40 Fraction of Inspired Oxygen 11/25/24 18:10 11/25/24 18:20 11/25/24 18:20 Pulse Rate 92 H 93 H Respiratory Rate 24 26 H Blood Pressure 122/93 H Pulse Oximetry 99 100 Oxygen Delivery Method Oxygen Flow Rate Fraction of Inspired Oxygen 11/25/24 18:30 11/25/24 18:30 11/25/24 18:40 Pulse Rate 92 H Respiratory Rate 22 Blood Pressure 112/81 112/70 Pulse Oximetry 99 Oxygen Delivery Method Oxygen Flow Rate Fraction of Inspired Oxygen 11/25/24 18:40 Pulse Rate 97 H Respiratory Rate 26 H Blood Pressure Pulse Oximetry 100 Oxygen Delivery Method Oxygen Flow Rate Fraction of Inspired Oxygen MDM - SOB/Dyspnea Lab Data 11/26/24 04:50 11/26/24 04:50 Labs: Lab Results 11/25/24 11/25/24 11/25/24 Range/Units 12:35 12:40 12:54 WBC 26.1 H (4.5-11.0) X10^3/uL RBC 4.81 (4.5-5.9) X10^6/uL Hgb 15.7 (13.5-17.5) g/dL Hct 45.9 (41-53) % MCV 95.4 (80-100) fL MCH 32.7 (26-34) PG MCHC 34.3 (30-36) % RDW 13.8 (11.6-14.8) % Plt Count 324 (150-400) X10^3/uL Neut % (Auto) 92.5 H (50-75) % Lymph % (Auto) 4.6 L (25-40) % [place] % (Auto) 2.2 L (3-14) % Eos % (Auto) 0.1 L (2-4) % Baso % (Auto) 0.6 (0-2) % Neut # (Auto) 32241 H (1209-0429) /uL Lymph # (Auto) 1200 (6278-9282) /uL [place] # (Auto) 600 (0-900) /uL Eos # (Auto) 0 (0-450) /uL Baso # (Auto) 200 H (0-100) /uL Total Counted 100 Seg Neutrophils % 41.0 (38-70) % Band Neutrophils % 47.0 H (3-7) % Lymphocytes % (Manual) 3.0 L (25-45) % Monocytes % (Manual) 7.0 (2-11) % Basophils % (Manual) 1.0 (0-1) % Metamyelocytes % 1.0 H (-0) % Neutrophils # (Manual) 60343 H (1116-5798) /uL RBC Morphology Normal morphology PT 16.2 H (9.4-12.5) SECONDS INR 1.4 H (0.9-1.3) APTT 38 H (25.1-36.5) SECONDS ABG Sample Site Left radial ABG pH 7.36 (7.35-7.45) ABG pCO2 27.7 L (35-45) mmHg ABG pO2 334 H* (80-100) mmHg ABG HCO3 16 L (23-27) mmol/L ABG Total CO2 15 L (23-27) mmol/L ABG O2 Saturation 100 (95-100) % ABG Base Excess -8.1 L (-2-3) mmol/L Jose Test Positive O2 Delivery Device Bipap Sodium 130 L (137-145) mmol/L Potassium 4.1 (3.4-5.1) mmol/L Chloride 92 L (98-107) mmol/L Carbon Dioxide 14 L (22-32) mmol/L BUN 37 H (9-20) mg/dL Creatinine 3.27 H (0.66-1.25) mg/dL Estimated GFR 20 L (>60) mL/min BUN/Creatinine Ratio 11.3 (6-22) Glucose 237 H (80-110) mg/dL Lactate 9.5 H* (0.7-2.1) mmol/L Calcium 9.3 (8.4-10.2) mg/dL Total Bilirubin 1.9 H (0.2-1.3) mg/dL AST 104 H (17-59) IU/L ALT 80 H (<50) IU/L Alkaline Phosphatase 287 H (38-126) U/L Total Creatine Kinase 240 H (55-170) U/L Troponin I 0.048 H (0.01-0.034) ng/mL NT-Pro-B Natriuret Pep 572 H (<125) pg/mL Total Protein 8.4 H (6.3-8.2) g/dL Albumin 4.0 (3.5-5.0) g/dL Globulin 4.4 H (1.7-4.1) g/dL Albumin/Globulin Ratio 0.9 L (1.0-2.8) Lipase 97 (23-300) U/L Chlamy pneumoniae PCR Not detected (Not Detect) Adenovirus (PCR) Not detected (Not Detect) B. pertussis DNA (PCR) Not detected (Not Detect) B.parapertussis DNA PCR Not detected (Not Detecte) Coronavirus OC43 (PCR) Not detected (Not Detect) Coronavirus HKU1 (PCR) Not detected (Not Detect) Coronavirus 229E (PCR) Not detected (Not Detect) SARS-CoV-2 (PCR) Not detected (Not Detecte) Coronavirus NL63 (PCR) Not detected (Not Detect) Human Metapneumovir PCR Not detected (Not Detect) Influenza Type A (PCR) Equivocal H (Not Detect) Influenza Type B (PCR) Not detected (Not Detect) M. pneumoniae (PCR) Not detected (Not Detect) Parainfluenza 1 (PCR) Not detected (Not Detect) Parainfluenza 2 (PCR) Not detected (Not Detect) Parainfluenza 3 (PCR) Not detected (Not Detect) Parainfluenza 4 (PCR) Not detected (Not Detect) RSV (PCR) Not detected (Not Detect) Entero/Rhino (PCR) Not detected (Not Detect) 11/25/24 11/25/24 Range/Units 14:40 16:40 WBC (4.5-11.0) X10^3/uL RBC (4.5-5.9) X10^6/uL Hgb (13.5-17.5) g/dL Hct (41-53) % MCV (80-100) fL MCH (26-34) PG MCHC (30-36) % RDW (11.6-14.8) % Plt Count (150-400) X10^3/uL Neut % (Auto) (50-75) % Lymph % (Auto) (25-40) % [place]pton % (Auto) (3-14) % Eos % (Auto) (2-4) % Baso % (Auto) (0-2) % Neut # (Auto) (7878-9387) /uL Lymph # (Auto) (7016-9040) /uL [place]pton # (Auto) (0-900) /uL Eos # (Auto) (0-450) /uL Baso # (Auto) (0-100) /uL Total Counted Seg Neutrophils % (38-70) % Band Neutrophils % (3-7) % Lymphocytes % (Manual) (25-45) % Monocytes % (Manual) (2-11) % Basophils % (Manual) (0-1) % Metamyelocytes % (-0) % Neutrophils # (Manual) (7306-5383) /uL RBC Morphology PT (9.4-12.5) SECONDS INR (0.9-1.3) APTT (25.1-36.5) SECONDS ABG Sample Site ABG pH (7.35-7.45) ABG pCO2 (35-45) mmHg ABG pO2 (80-100) mmHg ABG HCO3 (23-27) mmol/L ABG Total CO2 (23-27) mmol/L ABG O2 Saturation (95-100) % ABG Base Excess (-2-3) mmol/L Jose Test O2 Delivery Device Sodium 129 L (137-145) mmol/L Potassium 3.5 (3.4-5.1) mmol/L Chloride 99 (98-107) mmol/L Carbon Dioxide 17 L (22-32) mmol/L BUN 37 H (9-20) mg/dL Creatinine 2.93 H (0.66-1.25) mg/dL Estimated GFR 23 L (>60) mL/min BUN/Creatinine Ratio 12.6 (6-22) Glucose 147 H (80-110) mg/dL Lactate 4.4 H* 2.0 (0.7-2.1) mmol/L Calcium 7.8 L (8.4-10.2) mg/dL Total Bilirubin (0.2-1.3) mg/dL AST (17-59) IU/L ALT (<50) IU/L Alkaline Phosphatase (38-126) U/L Total Creatine Kinase (55-170) U/L Troponin I 0.058 H (0.01-0.034) ng/mL NT-Pro-B Natriuret Pep (<125) pg/mL Total Protein (6.3-8.2) g/dL Albumin (3.5-5.0) g/dL Globulin (1.7-4.1) g/dL Albumin/Globulin Ratio (1.0-2.8) Lipase (23-300) U/L Chlamy pneumoniae PCR (Not Detect) Adenovirus (PCR) (Not Detect) B. pertussis DNA (PCR) (Not Detect) B.parapertussis DNA PCR (Not Detecte) Coronavirus OC43 (PCR) (Not Detect) Coronavirus HKU1 (PCR) (Not Detect) Coronavirus 229E (PCR) (Not Detect) SARS-CoV-2 (PCR) (Not Detecte) Coronavirus NL63 (PCR) (Not Detect) Human Metapneumovir PCR (Not Detect) Influenza Type A (PCR) (Not Detect) Influenza Type B (PCR) (Not Detect) M. pneumoniae (PCR) (Not Detect) Parainfluenza 1 (PCR) (Not Detect) Parainfluenza 2 (PCR) (Not Detect) Parainfluenza 3 (PCR) (Not Detect) Parainfluenza 4 (PCR) (Not Detect) RSV (PCR) (Not Detect) Entero/Rhino (PCR) (Not Detect) Imaging Data CT scan - chest: Radiologist's Impression: PROCEDURE: CT ANGIO CHEST PE PROTOCOL INDICATIONS: hypoxic and blue TECHNIQUE: After the administration of intravenous contrast, 2 mm thick sections acquired from the pulmonary apices to the posterior costophrenic angles. 3-dimensional maximum intensity projection (MIP) coronal and sagittal reformats were then acquired through the thorax. For radiation dose reduction, the following was used: automated exposure control, adjustment of mA and/or kV according to patient size. COMPARISON: None. FINDINGS: Image quality: Diagnostic. Pulmonary arteries: Pulmonary arteries are normal in size, and demonstrate no intraluminal filling defects to suggest central pulmonary embolism. Lower Neck: No enlarged lymph nodes. Thyroid: No thyroid nodules which require sonographic follow up, per consensus guidelines. Axillae: No enlarged lymph nodes. Chest Wall: Unremarkable. Bones: Unremarkable. Lungs and Pleura: No pneumothorax or pleural effusions. Scattered airspace opacities are noted in posterior aspect of bilateral lower lobes. Subtle small airspace opacities are seen scattered in posterior aspect of bilateral lower lobes and right upper lobe with tree-in-bud appearance. Mild bronchiectasis in bilateral lower lobes are also seen. Heart: Heart size is normal. No pericardial effusion. Thoracic Vessels: No aortic aneurysm. Mediastinum and Rubi: No enlarged lymph nodes. Esophagus: No wall thickening. No hiatal hernia. Upper Abdomen: Visualized upper abdomen solid organs and bowel loops appear normal. IMPRESSION: 1. No pulmonary embolus. No thoracic aortic aneurysm or gross dissection. 2. Scattered airspace opacities in posterior aspect of bilateral lung adams worse on the right side with tree-in-bud appearance suggestive of small airway disease. Additional airspace opacities also noted in posterior aspect of bilateral lower lobes near lung bases with bronchiectasis suggestive of additional lower lobe infiltrates. No pleural effusion or pneumothorax. 3. No gross mediastinal or hilar lymphadenopathy.. Heart size is normal, no pericardial effusion. Dictated by: Artis Mathis M.D. on 11/25/2024 at 13:36 Approved by: Artis Mathis M.D. on 11/25/2024 at 14:01 ECG Data Attestation: I personally reviewed and interpreted this ECG as follows: Prior ECG tracings: available for review Interpretation: Sinus tachycardia rate 133 right bundle-branch block noted has prior right bundle 2014 [facility] Narrative Medical decision making narrative: [facility] CC: Shortness of breath Complicating co-morbidities: COPD coronary artery disease Medical records reviewed: Last PCP note Differential considered: Pulmonary embolism COPD exacerbation CHF pneumonia viral illness Exam documented above, pertinent findings include: Mottling with significant respiratory distress no extremity edema abdomen is soft Lab Test results independently reviewed as above. Pertinent findings: Lactate 9.5 WBC 26 Sodium 130 potassium 4.1 chloride 92 carbon dioxide 14 BUN 37 creatinine 3.2 Bilirubin 1.9 AST 104 ALT 80 alk-phos 287 CPK 240 Troponin 0.048-->0.058 BNP 572 + influenza a Independently reviewed EKG as above Sinus tachycardia Imaging studies independently reviewed: CT angio no pulmonary embolus Consultations: 1653 Dr.Guzman Ramirez, would recommend renal imaging but can be done at transfer. 1929 Dr. Carroll updated patient's symptoms test results improvement. At this time not needing vasopressor support minimal if any oxygen support he was improving creatinine. Agrees that patient can stay at [facility] and be managed here Treatments: Sepsis fluids Zosyn Solu-Medrol Re-evaluations: Once patient was placed on BiPAP he overall appears comfortable tolerating BiPAP well. Attempted trial off BiPAP after about 2-3 hours of BiPAP and he still needed it. However his color much improved Discussion: 64-year-old male history of COPD coronary artery disease presenting today with moderate to severe respiratory distress found mottling. Immediately placed on BiPAP which he actually improved. Blood pressure was low map was around 65. Initially sepsis fluids were held until PE was ruled out. CT angio does not show any evidence pulmonary embolism or pleural effusion or cardiomegaly. BNP is 572 he does not appear fluid overloaded at baseline. Sepsis fluids were started and actually he responded well. Blood pressure came up quite a bit within normal range. He was urinating. He does show improvement his renal function. Initial MADI as they 3.27 with repeat 2.93 Patient also initially found to have an extremely high lactic acid of 9.9 repeat of 4.4 repeat 2.0. I think this is due to sepsis and hypoxia. 1330 patient is reassessed after BiPAP and mottling is much more improved. 1600 patient reassessed after sepsis IV fluids have finished blood pressure improved urine output is improving overall fluid responsive no need for IV vasopressor 1900 trial the patient off BiPAP seems to be tolerating well no need for O2. Critical Care Time Critical Care Time Critical Care Time: Yes Total Critical Care Time: 45 Attestation: The high probability of a clinically significant, sudden or life threatening deterioration of the respiratory endovascular system(s) required my full and direct attention, intervention and personal management. The aggregate critical care time was [45] minutes. This time is in addition to time spent performing reported procedures but includes the following: [x] Data Review and interpretation [x] Patient assessment and monitoring of vital signs [x] Documentation [x] Medication orders and management Discharge Plan Departure Patient Disposition: Admitted As Inpatient Clinical Impression: Septic shock, Influenza A, MADI (acute kidney injury) Admit Date/Time: 11/25/24 19:23 Admit Provider: Santi Carroll
[2024-11-25] MEDS: SODIUM CHLORIDE 0.9% 1,983 ML 661 ML IV (14:28)
--- NOTE | 2024-11-25 14:40 | EKG_ITS ---
[address] [id number] [address] [address] Test Date: 2024-11-25 Pat Name: Zach Patiño Department: Room: 229 Gender: Male Design Eng: MUKUND : 1960 Requested By: Order Number: [id number] Reading MD: Santi Carroll MD Measurements Intervals [place] Rate: 102 P: 57 UT: 126 QRS: 51 QRSD: 118 T: 40 QT: 400 QTc: 521 Interpretive Statements Sinus tachycardia Incomplete right bundle branch block (old) Prolonged QT Electronically Signed On 11-26-2024 12:42:45 PST by Santi Carroll MD
--- NOTE | 2024-11-25 14:52 | PC.NURSE ---
Keith cath placed per orders, pt has had 90 cc of output at this time, approx 30 post placement.
[2024-11-25 14:53] LABS: Reflexed Lactate in 2 Hours Y
[2024-11-25 15:09] LABS: Lactate 2HR (Lactic Acid Rflx) 4.4 mmol/L (0.7-2.1)
[2024-11-25 15:44] LABS: Troponin I 0.058 ng/mL (0.01-0.034)
[2024-11-25 16:13] LABS: BUN Creatinine Ratio 12.6 (6-22); Blood Urea Nitrogen 37 mg/dL (9-20); Calcium 7.8 mg/dL (8.4-10.2); Carbon Dioxide 17 mmol/L (22-32); Chloride 99 mmol/L (98-107); Estimated Glomerular Filt Rate 23 mL/min (>60); Glucose 147 mg/dL (80-110); HEMOLYSIS < 15 (0-50); Potassium 3.5 mmol/L (3.4-5.1); Sodium 129 mmol/L (137-145)
[2024-11-25] MEDS: SODIUM CHLORIDE 0.9% 1,000 ML 125 ML IV (17:33)
--- NOTE | 2024-11-25 19:06 | PC.NURSE ---
Respiratory therapy came to patient room and removed patient bipap with provider knowledge. Patient requested that I call and inform his sister and let her know where he was. Sister is Nat phone number [phone]. Patient gave verbal consent to inform sister of his condition.
--- NOTE | 2024-11-25 20:10 | PC.NURSE ---
Pt off Bi-pap, eventually O2 dipped to 90, Place on O2 via NC at 4L. Now 96%
--- NOTE | 2024-11-25 20:21 | P.HP_ITS ---
History of Present Illness History of Present Illness Date Patient Seen: 11/25/24 Time Patient Seen: 20:22 Chief complaint: Difficulty Breathing Narrative: 64-year-old male, known to me, although he tends to avoid regular/routine health care, seen 3 times in the last 2 years. He does have significant medical problems including coronary disease COPD type 2 diabetes hypertension and depression/anxiety. Patient has been ill for approximately 3 weeks or so. He was assumed he had COVID since it felt much like it felt when he had it before but did not do any testing. He was having a lot of coughing felt like he had fever although did not check that. He was really had no appetite at all he was had maybe 4 or 5 bites of food and very little fluids in the last week. Finally because of his lack of improvement and worsening symptoms, he made an appointment to be seen in the clinic today but when he arrived quite late he was clearly in severe respiratory distress with mottling, etcetera. Clinic staff very appropriately summoned EMS who evaluated him found him to be quite hypoxic gave him nebulizer treatments oxygen and transported him to the ER. In the ER he was found to be quite tachycardic and hypotensive. He was immediately placed on BiPAP with good response. Subsequently with aggressive IV fluid resuscitation that is blood pressure came up in his heart rate went down. He did not require pressors. BiPAP help tremendously and eventually he was able to be weaned off of that and onto nasal cannula oxygen. [place] [id number], acute kidney injury with creatinine of 3.27 that improved to 2.93 after fluid resuscitation. Lactate initially of 9.5, dropped to 4, and now 2.0 when most recently checked. Also abnormal LFTs bilirubin. Chest CT angiography demonstrates multifocal pneumonic process bilaterally. He also tested positive for influenza A Patient was admitted for continued treatment. He was given a dose of IV antibiotics in the ER as well as IV steroids Patient does have a history of COPD he has as an albuterol inhaler as needed. Exact status of his respiratory diseases unknown since as above he is an infrequent visitor to the clinic. Also with known coronary disease, with a stent placed into his right coronary in 2015. Patient also with diabetes, most recent hemoglobin A1c performed in March 2023 and was 7.4. 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) Right shoulder tendonitis (1995) Anxiety (1999) Chronic back pain (2004) Chicken pox (1965) Hemorrhoids (2004) [place] (myocardial infarction) (07/18/16) Supraventricular tachycardia (08/13/15) Mixed hyperlipidemia (08/13/15) Recurrent major depressive disorder, in full remission (08/13/15) Type 2 diabetes mellitus without complication (01/18/13) Essential hypertension Surgical History History of colonoscopy Anesthesia History of heart artery stent (07/2016) History of hand surgery (1997) History of shoulder surgery (1995) Status post insertion of drug-eluting stent into right coronary artery for coronary artery disease (09/19/16) Family History Father Hypertension Mental health problem Cirrhosis Heart disease Mother Cancer COPD (chronic obstructive pulmonary disease) Lung disease Grandfather No problems noted. Grandmother No problems noted. Grandmother No problems noted. Sister No problems noted. Social History marital status: unmarried,single number of children: 0 household members: none lives independently: Yes caregiver/support person: No housing: house pets and animals: No education level: other (Bachelors degree, some grad schooling.) occupational status: disabled (Disabled retired.) Previous occupational history: [employer] travel history: over 6 months ago ([place]) leisure activities: games ([employer]Em) and reading Smoking Status: Current every day smoker Tobacco: How many years used: 38 Smokeless tobacco user: other (Cigarettes, Marijuana) quit status: considering quitting second hand exposure: Yes (1st and 2nd hand) alcohol intake: current (Drink every other day) substance use type: marijuana Meds Home Medications and Allergies Home Medications Medication Instructions Recorded Confirmed Type aspirin 81 mg tablet,delayed 81 mg PO QDAY #30 tabs 08/08/16 06/22/24 History release nitroglycerin 0.4 mg sublingual 0.4 mg sublingual PRN PRN Chest 08/08/16 06/22/24 History tablet (Nitrostat) Pain #0 tabs albuterol sulfate 90 mcg/actuation 2 puff inhalation Q6H PRN 06/08/23 06/22/24 Rx aerosol inhaler shortness of breath or wheezing #8.5 grams sildenafil 100 mg tablet 100 mg PO ONCE #30 tabs 06/16/23 06/22/24 Rx venlafaxine 150 mg 150 mg PO DAILY #90 caps 03/17/24 06/22/24 Rx capsule,extended release 24 hr alprazolam 0.5 mg tablet 0.5 mg PO BEDTIME PRN anxiety #90 06/15/24 06/22/24 Rx tabs losartan 50 mg tablet 50 mg PO DAILY #90 tabs 08/15/24 Rx atorvastatin 40 mg tablet 40 mg PO BEDTIME #90 tabs 09/05/24 Rx clopidogrel 75 mg tablet 75 mg PO QDAY #90 tabs 11/22/24 Rx metoprolol tartrate 50 mg tablet 50 mg PO BID #180 tabs 11/22/24 Rx Allergies Allergy/AdvReac Type Severity Reaction Status Date / Time No Known Drug Allergies Allergy Verified 06/22/24 14:20 Review of Systems Review of Systems ROS: Yes All systems reviewed with the patient and are negative except as otherwise documented Exam Vital Signs (past 8 hours): - 11/25/24 12:51 11/25/24 12:55 11/25/24 13:00 Pulse Rate 133 H 134 H Respiratory Rate 30 H 29 H Blood Pressure 90/55 L 112/74 Pulse Oximetry 93 Oxygen Delivery Method Aerosol Mask BiPAP Oxygen Flow Rate 10 Fraction of Inspired Oxygen 11/25/24 13:00 11/25/24 13:05 11/25/24 13:07 Pulse Rate 155 H 150 H Respiratory Rate 33 H 31 H Blood Pressure Pulse Oximetry Oxygen Delivery Method BiPAP Oxygen Flow Rate Fraction of Inspired Oxygen 45 11/25/24 13:09 11/25/24 13:09 11/25/24 13:10 Pulse Rate 146 H Respiratory Rate 30 H Blood Pressure 79/49 L 84/53 L Pulse Oximetry Oxygen Delivery Method Oxygen Flow Rate Fraction of Inspired Oxygen 11/25/24 13:10 11/25/24 13:13 11/25/24 13:13 Pulse Rate 146 H 144 H Respiratory Rate 30 H 30 H Blood Pressure 85/53 L Pulse Oximetry Oxygen Delivery Method Oxygen Flow Rate Fraction of Inspired Oxygen 11/25/24 13:15 11/25/24 13:16 11/25/24 13:16 Pulse Rate 144 H 143 H Respiratory Rate 30 H 29 H Blood Pressure 77/48 L Pulse Oximetry Oxygen Delivery Method Oxygen Flow Rate Fraction of Inspired Oxygen 11/25/24 13:20 11/25/24 13:20 11/25/24 13:20 Pulse Rate 118 H Respiratory Rate 29 H Blood Pressure 117/52 L Pulse Oximetry Oxygen Delivery Method Oxygen Flow Rate Fraction of Inspired Oxygen 45 11/25/24 13:22 11/25/24 13:22 11/25/24 13:24 Pulse Rate 119 H 118 H Respiratory Rate 30 H 31 H Blood Pressure 78/56 L Pulse Oximetry 77 L Oxygen Delivery Method Oxygen Flow Rate Fraction of Inspired Oxygen 11/25/24 13:24 11/25/24 13:25 11/25/24 13:27 Pulse Rate 118 H 115 H Respiratory Rate 30 H 27 H Blood Pressure 84/62 L Pulse Oximetry Oxygen Delivery Method Oxygen Flow Rate Fraction of Inspired Oxygen 11/25/24 13:27 11/25/24 13:30 11/25/24 13:30 Pulse Rate 114 H Respiratory Rate 23 Blood Pressure 88/57 L 133/70 Pulse Oximetry Oxygen Delivery Method Oxygen Flow Rate Fraction of Inspired Oxygen 11/25/24 13:32 11/25/24 13:32 11/25/24 13:34 Pulse Rate 111 H Respiratory Rate 31 H Blood Pressure 159/79 H 142/63 H Pulse Oximetry Oxygen Delivery Method Oxygen Flow Rate Fraction of Inspired Oxygen 11/25/24 13:34 11/25/24 13:35 11/25/24 13:36 Pulse Rate 108 H 108 H Respiratory Rate 29 H 28 H Blood Pressure 101/58 L Pulse Oximetry 86 L 90 L Oxygen Delivery Method Oxygen Flow Rate Fraction of Inspired Oxygen 11/25/24 13:36 11/25/24 13:40 11/25/24 13:40 Pulse Rate 108 H 110 H Respiratory Rate 29 H 30 H Blood Pressure 90/54 L Pulse Oximetry 92 Oxygen Delivery Method Oxygen Flow Rate Fraction of Inspired Oxygen 11/25/24 13:44 11/25/24 13:44 11/25/24 13:45 Pulse Rate 109 H 108 H Respiratory Rate 27 H 28 H Blood Pressure 92/58 L Pulse Oximetry 93 Oxygen Delivery Method Oxygen Flow Rate Fraction of Inspired Oxygen 11/25/24 13:48 11/25/24 13:48 11/25/24 13:50 Pulse Rate 108 H 107 H Respiratory Rate 29 H 29 H Blood Pressure 100/58 L Pulse Oximetry 92 91 Oxygen Delivery Method Oxygen Flow Rate Fraction of Inspired Oxygen 11/25/24 13:53 11/25/24 13:53 11/25/24 13:55 Pulse Rate 110 H 109 H Respiratory Rate 31 H 25 H Blood Pressure 85/56 L Pulse Oximetry 91 Oxygen Delivery Method Oxygen Flow Rate Fraction of Inspired Oxygen 11/25/24 13:56 11/25/24 13:56 11/25/24 14:00 Pulse Rate 109 H Respiratory Rate 28 H Blood Pressure 91/59 L 88/60 L Pulse Oximetry Oxygen Delivery Method Oxygen Flow Rate Fraction of Inspired Oxygen 11/25/24 14:00 11/25/24 14:04 11/25/24 14:04 Pulse Rate 113 H 108 H Respiratory Rate 31 H 28 H Blood Pressure 91/58 L Pulse Oximetry 90 L 93 Oxygen Delivery Method BiPAP Oxygen Flow Rate Fraction of Inspired Oxygen 11/25/24 14:05 11/25/24 14:08 11/25/24 14:08 Pulse Rate 109 H 106 H Respiratory Rate 28 H 24 Blood Pressure 93/59 L Pulse Oximetry 91 95 Oxygen Delivery Method Oxygen Flow Rate Fraction of Inspired Oxygen 11/25/24 14:10 11/25/24 14:12 11/25/24 14:12 Pulse Rate 107 H 110 H Respiratory Rate 26 H 31 H Blood Pressure 107/57 L Pulse Oximetry 97 96 Oxygen Delivery Method Oxygen Flow Rate Fraction of Inspired Oxygen 11/25/24 14:15 11/25/24 14:17 11/25/24 14:17 Pulse Rate 107 H 105 H Respiratory Rate 24 26 H Blood Pressure 87/61 L Pulse Oximetry 98 98 Oxygen Delivery Method Oxygen Flow Rate Fraction of Inspired Oxygen 11/25/24 14:20 11/25/24 14:20 11/25/24 14:24 Pulse Rate 104 H Respiratory Rate 25 H Blood Pressure 83/56 L 83/57 L Pulse Oximetry 98 Oxygen Delivery Method Oxygen Flow Rate Fraction of Inspired Oxygen 11/25/24 14:24 11/25/24 14:25 11/25/24 14:28 Pulse Rate 102 H 102 H Respiratory Rate 23 22 Blood Pressure 86/58 L Pulse Oximetry 99 100 Oxygen Delivery Method Oxygen Flow Rate Fraction of Inspired Oxygen 11/25/24 14:28 11/25/24 14:30 11/25/24 14:32 Pulse Rate 103 H 102 H Respiratory Rate 27 H 21 Blood Pressure 82/55 L Pulse Oximetry 97 98 Oxygen Delivery Method Oxygen Flow Rate Fraction of Inspired Oxygen 11/25/24 14:32 11/25/24 14:35 11/25/24 14:36 Pulse Rate 102 H 102 H 104 H Respiratory Rate 23 19 23 Blood Pressure Pulse Oximetry 97 96 95 Oxygen Delivery Method Oxygen Flow Rate Fraction of Inspired Oxygen 11/25/24 14:36 11/25/24 14:40 11/25/24 14:41 Pulse Rate 100 H Respiratory Rate 20 Blood Pressure 91/56 L 88/62 L Pulse Oximetry 97 Oxygen Delivery Method Oxygen Flow Rate Fraction of Inspired Oxygen 11/25/24 14:41 11/25/24 14:44 11/25/24 14:44 Pulse Rate 99 H 97 H Respiratory Rate 24 21 Blood Pressure 84/55 L Pulse Oximetry 97 97 Oxygen Delivery Method Oxygen Flow Rate Fraction of Inspired Oxygen 11/25/24 14:45 11/25/24 14:48 11/25/24 14:48 Pulse Rate 98 H 96 H Respiratory Rate 21 21 Blood Pressure 80/54 L Pulse Oximetry 98 98 Oxygen Delivery Method Oxygen Flow Rate Fraction of Inspired Oxygen 11/25/24 14:50 11/25/24 14:50 11/25/24 14:55 Pulse Rate 97 H Respiratory Rate 22 Blood Pressure 80/55 L 82/53 L Pulse Oximetry 97 Oxygen Delivery Method Oxygen Flow Rate Fraction of Inspired Oxygen 11/25/24 14:55 11/25/24 15:00 11/25/24 15:00 Pulse Rate 96 H 96 H Respiratory Rate 22 24 Blood Pressure 80/56 L Pulse Oximetry 97 98 Oxygen Delivery Method BiPAP Oxygen Flow Rate Fraction of Inspired Oxygen 11/25/24 15:05 11/25/24 15:05 11/25/24 15:10 Pulse Rate 93 H Respiratory Rate 23 Blood Pressure 84/58 L 87/60 L Pulse Oximetry 98 Oxygen Delivery Method Oxygen Flow Rate Fraction of Inspired Oxygen 11/25/24 15:10 11/25/24 15:15 11/25/24 15:15 Pulse Rate 94 H 94 H Respiratory Rate 22 24 Blood Pressure 84/59 L Pulse Oximetry 97 99 Oxygen Delivery Method BiPAP Oxygen Flow Rate Fraction of Inspired Oxygen 11/25/24 15:20 11/25/24 15:20 11/25/24 15:25 Pulse Rate 93 H Respiratory Rate 24 Blood Pressure 88/59 L 90/62 Pulse Oximetry 99 Oxygen Delivery Method Oxygen Flow Rate Fraction of Inspired Oxygen 11/25/24 15:25 11/25/24 15:30 11/25/24 15:30 Pulse Rate 93 H 92 H Respiratory Rate 25 H 24 Blood Pressure 94/65 Pulse Oximetry 99 100 Oxygen Delivery Method BiPAP Oxygen Flow Rate Fraction of Inspired Oxygen 11/25/24 15:35 11/25/24 15:35 11/25/24 15:40 Pulse Rate 94 H Respiratory Rate 23 Blood Pressure 98/69 101/71 Pulse Oximetry 100 Oxygen Delivery Method Oxygen Flow Rate Fraction of Inspired Oxygen 11/25/24 15:40 11/25/24 15:45 11/25/24 15:50 Pulse Rate 94 H 94 H Respiratory Rate 24 22 Blood Pressure 103/74 Pulse Oximetry 100 100 Oxygen Delivery Method BiPAP Oxygen Flow Rate Fraction of Inspired Oxygen 11/25/24 15:50 11/25/24 15:55 11/25/24 16:00 Pulse Rate 95 H 95 H Respiratory Rate 24 23 Blood Pressure 107/75 Pulse Oximetry 99 99 Oxygen Delivery Method Oxygen Flow Rate Fraction of Inspired Oxygen 11/25/24 16:00 11/25/24 16:05 11/25/24 16:10 Pulse Rate 95 H 97 H 95 H Respiratory Rate 24 23 24 Blood Pressure Pulse Oximetry 99 99 98 Oxygen Delivery Method BiPAP Oxygen Flow Rate Fraction of Inspired Oxygen 11/25/24 16:10 11/25/24 16:15 11/25/24 16:20 Pulse Rate 96 H Respiratory Rate 23 Blood Pressure 118/79 107/74 Pulse Oximetry 99 Oxygen Delivery Method Oxygen Flow Rate Fraction of Inspired Oxygen 11/25/24 16:20 11/25/24 16:25 11/25/24 16:30 Pulse Rate 94 H 95 H Respiratory Rate 22 22 Blood Pressure 106/78 Pulse Oximetry 97 99 Oxygen Delivery Method Oxygen Flow Rate Fraction of Inspired Oxygen 11/25/24 16:30 11/25/24 16:35 11/25/24 16:40 Pulse Rate 96 H 97 H Respiratory Rate 23 23 Blood Pressure 111/79 Pulse Oximetry 99 99 Oxygen Delivery Method BiPAP Oxygen Flow Rate Fraction of Inspired Oxygen 11/25/24 16:40 11/25/24 16:50 11/25/24 16:50 Pulse Rate 96 H 96 H Respiratory Rate 23 24 Blood Pressure 111/81 Pulse Oximetry 99 99 Oxygen Delivery Method BiPAP Oxygen Flow Rate 40 Fraction of Inspired Oxygen 11/25/24 17:00 11/25/24 17:00 11/25/24 17:10 Pulse Rate 94 H Respiratory Rate 20 Blood Pressure 108/75 113/80 Pulse Oximetry 100 Oxygen Delivery Method BiPAP Oxygen Flow Rate 40 Fraction of Inspired Oxygen 11/25/24 17:10 11/25/24 17:20 11/25/24 17:20 Pulse Rate 93 H 94 H Respiratory Rate 23 24 Blood Pressure 112/80 Pulse Oximetry 100 100 Oxygen Delivery Method Oxygen Flow Rate 40 40 Fraction of Inspired Oxygen 11/25/24 17:30 11/25/24 17:30 11/25/24 17:40 Pulse Rate 93 H 96 H Respiratory Rate 25 H 25 H Blood Pressure 115/83 Pulse Oximetry 100 99 Oxygen Delivery Method Oxygen Flow Rate 40 40 Fraction of Inspired Oxygen 11/25/24 17:40 11/25/24 17:50 11/25/24 17:50 Pulse Rate 94 H Respiratory Rate 24 Blood Pressure 149/92 H 143/95 H Pulse Oximetry 100 Oxygen Delivery Method Oxygen Flow Rate 14 Fraction of Inspired Oxygen 11/25/24 18:00 11/25/24 18:00 11/25/24 18:10 Pulse Rate 93 H Respiratory Rate 23 Blood Pressure 140/90 141/93 H Pulse Oximetry 99 Oxygen Delivery Method Oxygen Flow Rate 40 Fraction of Inspired Oxygen 11/25/24 18:10 11/25/24 18:20 11/25/24 18:20 Pulse Rate 92 H 93 H Respiratory Rate 24 26 H Blood Pressure 122/93 H Pulse Oximetry 99 100 Oxygen Delivery Method Oxygen Flow Rate Fraction of Inspired Oxygen 11/25/24 18:30 11/25/24 18:30 11/25/24 18:40 Pulse Rate 92 H Respiratory Rate 22 Blood Pressure 112/81 112/70 Pulse Oximetry 99 Oxygen Delivery Method Oxygen Flow Rate Fraction of Inspired Oxygen 11/25/24 18:40 11/25/24 18:50 11/25/24 18:51 Pulse Rate 97 H 91 H Respiratory Rate 26 H 24 Blood Pressure 105/74 Pulse Oximetry 100 100 Oxygen Delivery Method Oxygen Flow Rate Fraction of Inspired Oxygen 11/25/24 18:51 11/25/24 19:00 11/25/24 19:00 Pulse Rate 95 H 93 H Respiratory Rate 21 30 H Blood Pressure 103/72 Pulse Oximetry 99 99 Oxygen Delivery Method Oxygen Flow Rate Fraction of Inspired Oxygen 11/25/24 19:10 11/25/24 19:10 11/25/24 19:20 Pulse Rate 94 H Respiratory Rate 28 H Blood Pressure 121/79 139/86 Pulse Oximetry 95 Oxygen Delivery Method Oxygen Flow Rate Fraction of Inspired Oxygen 11/25/24 19:20 11/25/24 19:30 11/25/24 19:30 Pulse Rate 93 H 94 H Respiratory Rate 27 H 27 H Blood Pressure 142/98 H Pulse Oximetry 90 L 90 L Oxygen Delivery Method Oxygen Flow Rate Fraction of Inspired Oxygen 11/25/24 19:40 11/25/24 19:40 11/25/24 19:50 Pulse Rate 92 H 94 H Respiratory Rate 26 H 26 H Blood Pressure 135/90 Pulse Oximetry 92 89 L Oxygen Delivery Method Oxygen Flow Rate Fraction of Inspired Oxygen 11/25/24 19:50 11/25/24 20:00 11/25/24 20:00 Pulse Rate 92 H Respiratory Rate 25 H Blood Pressure 141/84 H 130/86 Pulse Oximetry 90 L Oxygen Delivery Method Oxygen Flow Rate Fraction of Inspired Oxygen Fraction of Inspired Oxygen 45 Oxygen Delivery Method BiPAP Oxygen Flow Rate 40 Narrative Exam Narrative: Older than stated age appearing male in no obvious distress lying in a gurney in the emergency department HEENT-normocephalic atraumatic PERRLA EOMs intact Neck-no lymphadenopathy no bruits Lungs-crackles at the bases bilaterally without wheezes good breath sounds Heart-regular rate and rhythm Abdomen-positive bowel tones soft nontender nondistended Objective Labs 11/25/24 12:35 11/25/24 14:40 Labs: Laboratory Results - last 24 hr 11/25/24 11/25/24 11/25/24 12:35 12:40 12:54 WBC 26.1 H RBC 4.81 Hgb 15.7 Hct 45.9 MCV 95.4 MCH 32.7 MCHC 34.3 RDW 13.8 Plt Count 324 Neut % (Auto) 92.5 H Lymph % (Auto) 4.6 L [place] % (Auto) 2.2 L Eos % (Auto) 0.1 L Baso % (Auto) 0.6 Neut # (Auto) 76882 H Lymph # (Auto) 1200 [place] # (Auto) 600 Eos # (Auto) 0 Baso # (Auto) 200 H Total Counted 100 Seg Neutrophils % 41.0 Band Neutrophils % 47.0 H Lymphocytes % (Manual) 3.0 L Monocytes % (Manual) 7.0 Basophils % (Manual) 1.0 Metamyelocytes % 1.0 H Neutrophils # (Manual) 52050 H RBC Morphology Normal morphology PT 16.2 H INR 1.4 H APTT 38 H ABG Sample Site Left radial ABG pH 7.36 ABG pCO2 27.7 L ABG pO2 334 H* ABG HCO3 16 L ABG Total CO2 15 L ABG O2 Saturation 100 ABG Base Excess -8.1 L Jose Test Positive O2 Delivery Device Bipap Sodium 130 L Potassium 4.1 Chloride 92 L Carbon Dioxide 14 L BUN 37 H Creatinine 3.27 H Estimated GFR 20 L BUN/Creatinine Ratio 11.3 Glucose 237 H Lactate 9.5 H* Calcium 9.3 Total Bilirubin 1.9 H AST 104 H ALT 80 H Alkaline Phosphatase 287 H Total Creatine Kinase 240 H Troponin I 0.048 H NT-Pro-B Natriuret Pep 572 H Total Protein 8.4 H Albumin 4.0 Globulin 4.4 H Albumin/Globulin Ratio 0.9 L Lipase 97 Chlamy pneumoniae PCR Not detected Adenovirus (PCR) Not detected B. pertussis DNA (PCR) Not detected B.parapertussis DNA PCR Not detected Coronavirus OC43 (PCR) Not detected Coronavirus HKU1 (PCR) Not detected Coronavirus 229E (PCR) Not detected SARS-CoV-2 (PCR) Not detected Coronavirus NL63 (PCR) Not detected Human Metapneumovir PCR Not detected Influenza Type A (PCR) Equivocal H Influenza Type B (PCR) Not detected M. pneumoniae (PCR) Not detected Parainfluenza 1 (PCR) Not detected Parainfluenza 2 (PCR) Not detected Parainfluenza 3 (PCR) Not detected Parainfluenza 4 (PCR) Not detected RSV (PCR) Not detected Entero/Rhino (PCR) Not detected 11/25/24 11/25/24 14:40 16:40 WBC RBC Hgb Hct MCV MCH MCHC RDW Plt Count Neut % (Auto) Lymph % (Auto) [place] % (Auto) Eos % (Auto) Baso % (Auto) Neut # (Auto) Lymph # (Auto) [place] # (Auto) Eos # (Auto) Baso # (Auto) Total Counted Seg Neutrophils % Band Neutrophils % Lymphocytes % (Manual) Monocytes % (Manual) Basophils % (Manual) Metamyelocytes % Neutrophils # (Manual) RBC Morphology PT INR APTT ABG Sample Site ABG pH ABG pCO2 ABG pO2 ABG HCO3 ABG Total CO2 ABG O2 Saturation ABG Base Excess Jose Test O2 Delivery Device Sodium 129 L Potassium 3.5 Chloride 99 Carbon Dioxide 17 L BUN 37 H Creatinine 2.93 H Estimated GFR 23 L BUN/Creatinine Ratio 12.6 Glucose 147 H Lactate 4.4 H* 2.0 Calcium 7.8 L Total Bilirubin AST ALT Alkaline Phosphatase Total Creatine Kinase Troponin I 0.058 H NT-Pro-B Natriuret Pep Total Protein Albumin Globulin Albumin/Globulin Ratio Lipase Chlamy pneumoniae PCR Adenovirus (PCR) B. pertussis DNA (PCR) B.parapertussis DNA PCR Coronavirus OC43 (PCR) Coronavirus HKU1 (PCR) Coronavirus 229E (PCR) SARS-CoV-2 (PCR) Coronavirus NL63 (PCR) Human Metapneumovir PCR Influenza Type A (PCR) Influenza Type B (PCR) M. pneumoniae (PCR) Parainfluenza 1 (PCR) Parainfluenza 2 (PCR) Parainfluenza 3 (PCR) Parainfluenza 4 (PCR) RSV (PCR) Entero/Rhino (PCR) Assessment & Plan Assessment & Plan narrative: 1. Hypoxia-likely secondary to his pneumonia which certainly he was viral based on the positive influenza swab but also could be bacterial, especially with the super elevated white blood cell count. Will continue to treat his underlying condition but will use BiPAP and or supplemental oxygen as necessary. Aiming for oxygen saturation of around 90% 2. Pneumonia-likely secondary to both bacterial pneumonia as well as influenza a. Elevated white counts to me suggest more bacterial pneumonia than just a viral pneumonia. He should receive Tamiflu (will adjust dose based on renal function which seems to be rapidly improving) as well as antibiotics for severe community-acquired pneumonia. Despite the fact his symptoms began several weeks ago a hard to know when exactly the influenza began in so I think a course of Tamiflu he was more likely to be helpful than harmful and will go ahead and plan for that. 3. COPD-patient with underlying COPD now with significant pulmonary disease/infection. I think IV steroids makes sense as well as albuterol via nebulizer. If need be he will be placed back on BiPAP etcetera. Respiratory therapy protocol will be initiated. However on exam his lungs sound much better than expected, and his chronic lung disease maybe playing a lesser role in his presenting hypoxia than I initially thought. However will continue with the IV steroids for now as well as nebulizers etcetera. 4. Diabetes-steroids likely make his blood sugars much worse. Will need to be on a carbohydrate consistent diet when he was allowed to eat and will follow his blood sugars and give coverage insulin as necessary 5. Coronary disease-no evidence of active coronary disease at this time. Borderline troponin in his ER evaluation likely secondary to his acute kidney injury. Because of his sepsis in his history of coronary disease certainly think echocardiography is appropriate and will be performed 6. Acute kidney injury-likely secondary to sepsis and volume depletion. Responded so far nicely to IV fluids, which will be continued vigorously through the night and re-evaluate in the morning 7. Abnormal LFTs-patient with underlying abnormal LFTs thought to be secondary to fatty liver disease. Further increase seen on admission either due to his sepsis and or his infectious process. Will continue to follow for now. 8. VTE prophylaxis-Lovenox at renal dose will be utilized and has been ordered 9. Code status-full code including intubation in the setting of cardiac or respiratory arrest. This is confirmed with the patient COVID-19 COVID-19 status: Negative Time-Based Coding :: [TOTAL MINUTES] spent with patient and on the chart (including review of chart, obtaining history, exam, reviewing outside data, placing orders, documenting exam and treatment plan, and counseling patient) on [DATE]. PROFEE Contact [employer] Document charge(s): Yes Charge Codes Initial inpatient/observation care: 42577
[2024-11-25] MEDS: SODIUM CHLORIDE 0.9% 1,000 ML 150 ML IV (22:00)
[2024-11-25] MEDS: INSULIN LISPRO 100 UNIT/ML 3ML VIAL SUBCUT (22:30)
[2024-11-25] MEDS: ATORVASTATIN 20 MG TABLET 40 MG PO (22:30)
[2024-11-25] MEDS: AMPICILLIN/SULBACTAM 3 GM 3 GM in SODIUM CHLORIDE 0.9% 100 ML IV (22:30)
[2024-11-25] MEDS: OSELTAMIVIR 75 MG CAPSULE PO (22:30)
[2024-11-25] MEDS: AZITHROMYCIN 500 MG in DEXTROSE 5% IN WATER 250 ML 250 MG IV (22:30)
[2024-11-25 23:28] LABS: MRSA (Nasal) PCR NOT DETECTED (Not Detect)
[2024-11-26] VITALS (91 sets, daily range): BP systolic 92–170; BP diastolic 61–89; PULSE 70–109; RESP 20–35; TEMP 37; O2SAT 87–98
[2024-11-26] MEDS: methylPREDNISolone 125 MG/2 ML VIAL 60 MG IV ×4 (00:38→21:01)
[2024-11-26] MEDS: BENZONATATE 100 MG CAPSULE 200 MG PO ×2 (00:41→20:55)
[2024-11-26] MEDS: guaiFENesin Solution 100 MG/5 ML UDC PO (00:41)
[2024-11-26] MEDS: AMPICILLIN/SULBACTAM 3 GM 3 GM in SODIUM CHLORIDE 0.9% 100 ML IV ×4 (03:27→21:03)
[2024-11-26 05:07] LABS: Add Manual Diff / Slide Review NO; Basophils Absolute Auto 100 /uL (0-100); Basophils Percent Auto 0.3 % (0-2); Eosinophils Absolute Auto 0 /uL (0-450); Hematocrit 34.2 % (41-53); Hemoglobin 11.4 g/dL (13.5-17.5); Lymphocytes Absolute Auto 900 /uL (1100-4500); Lymphocytes Percent Auto 4.9 % (25-40); Mean Corpuscular HGB Conc 33.4 % (30-36); Mean Corpuscular Hemoglobin 31.4 PG (26-34); Mean Corpuscular Volume 94.1 fL (80-100); Monocytes Absolute Auto 800 /uL (0-900); Monocytes Percent Auto 4.3 % (3-14); Neutrophils Absolute Auto 17500 /uL (1500-7000); Neutrophils Percent Auto 90.5 % (50-75); Platelet Count 230 X10^3/uL (150-400); Red Blood Cell Count 3.64 X10^6/uL (4.5-5.9); Red Cell Distribution Width 13.8 % (11.6-14.8); White Blood Cell Count 19.3 X10^3/uL (4.5-11.0)
[2024-11-26 05:23] LABS: Alanine Aminotransferase 38 IU/L (<50); Albumin 2.6 g/dL (3.5-5.0); Albumin Globulin Ratio 0.8 (1.0-2.8); Alkaline Phosphatase 110 U/L (38-126); Aspartate Aminotransferase 52 IU/L (17-59); BUN Creatinine Ratio 14.3 (6-22); Bilirubin Total 0.8 mg/dL (0.2-1.3); Blood Urea Nitrogen 39 mg/dL (9-20); Calcium 7.1 mg/dL (8.4-10.2); Carbon Dioxide 17 mmol/L (22-32); Chloride 106 mmol/L (98-107); Estimated Glomerular Filt Rate 25 mL/min (>60); Globulin 3.4 g/dL (1.7-4.1); Glucose 148 mg/dL (80-110); HEMOLYSIS < 15 (0-50); Magnesium 1.7 mg/dL (1.6-2.3); Potassium 3.8 mmol/L (3.4-5.1); Sodium 133 mmol/L (137-145)
--- NOTE | 2024-11-26 06:30 | PC.NURSE ---
Arrived on floor @ 2047. ED reported mottling from chest to knees, CT (-) for PE. No further evidence of mottling observed since admit to the floor. Pt has strong rattling non-productive cough, Dr Carroll aware & orders for guaifensen and tessalon given, with some reduction in symptoms. Pt has tremors in hands, and states that this began a few days ago as he became more ill, also reports that he has had no appetite and has not eaten or taken much fluid over the last 7-10 days. Pt came to floor with gillis catheter in place, catheter leaking and causing discomfort to pt, removed at 0000, pt voiding without difficulty in urinal.
[2024-11-26] MEDS: SODIUM CHLORIDE 0.9% 1,000 ML 150 ML IV ×2 (08:01→16:36)
[2024-11-26] MEDS: INSULIN LISPRO 100 UNIT/ML 3ML VIAL SUBCUT ×4 (08:01→21:00)
[2024-11-26] MEDS: CLOPIDOGREL 75 MG TABLET PO (08:09)
[2024-11-26] MEDS: PANTOPRAZOLE 40 MG VIAL IV (08:09)
[2024-11-26] MEDS: VENLAFAXINE ER 75 MG CAP 150 MG PO (08:09)
[2024-11-26] MEDS: ASPIRIN EC 81 MG TABLET PO (08:09)
[2024-11-26] MEDS: ENOXAPARIN 30 MG/0.3 ML SYRINGE SUBCUT (08:09)
[2024-11-26] MEDS: ALBUTEROL 2.5 MG/3 ML NEB (ADULT) INH ×4 (08:33→19:47)
--- NOTE | 2024-11-26 08:56 | P.PN_ITS ---
Subjective Subjective Date Patient Seen: 11/26/24 Time Patient Seen: 08:56 Interval history: Patient was relatively uneventful night. Vital signs have been stable. Heart rate in the 70s blood pressure in the 120s. Remains on 2-4 L via nasal cannula with oxygen saturation at 96-97 % Coughing a lot but no new complaints Labs this morning show slight improvement in renal function with a creatinine dropping slightly. Electrolytes improved. Decreasing white blood cell count also decreasing hemoglobin hematocrit likely consistent with delusional or hemo concentration on original numbers Fingerstick blood sugars elevated as expected Patient is sleeping soundly difficult to arouse Exam Vital Signs (past 8 hours): - 11/26/24 01:00 11/26/24 01:00 11/26/24 01:10 Pulse Rate 87 86 Respiratory Rate 25 H 27 H Blood Pressure 111/78 Pulse Oximetry 96 94 Oxygen Delivery Method Oxygen Flow Rate Fraction of Inspired Oxygen 11/26/24 01:20 11/26/24 01:30 11/26/24 01:40 Pulse Rate 95 H 83 97 H Respiratory Rate 30 H 25 H 35 H Blood Pressure Pulse Oximetry 94 92 94 Oxygen Delivery Method Oxygen Flow Rate Fraction of Inspired Oxygen 11/26/24 01:50 11/26/24 02:00 11/26/24 02:00 Pulse Rate 84 90 Respiratory Rate 26 H 31 H Blood Pressure 98/65 Pulse Oximetry 94 96 Oxygen Delivery Method Oxygen Flow Rate Fraction of Inspired Oxygen 11/26/24 02:10 11/26/24 02:20 11/26/24 02:30 Pulse Rate 91 H 83 82 Respiratory Rate 33 H 26 H 25 H Blood Pressure Pulse Oximetry 97 94 94 Oxygen Delivery Method Oxygen Flow Rate Fraction of Inspired Oxygen 11/26/24 02:40 11/26/24 02:50 11/26/24 03:00 Pulse Rate 82 81 Respiratory Rate 27 H 24 Blood Pressure 92/61 Pulse Oximetry 95 94 Oxygen Delivery Method Oxygen Flow Rate Fraction of Inspired Oxygen 11/26/24 03:00 11/26/24 03:10 11/26/24 03:20 Pulse Rate 80 80 79 Respiratory Rate 24 22 22 Blood Pressure Pulse Oximetry 93 93 93 Oxygen Delivery Method Oxygen Flow Rate Fraction of Inspired Oxygen 11/26/24 03:30 11/26/24 03:40 11/26/24 03:50 Pulse Rate 78 76 76 Respiratory Rate 21 21 21 Blood Pressure Pulse Oximetry 93 93 94 Oxygen Delivery Method Oxygen Flow Rate Fraction of Inspired Oxygen 11/26/24 04:00 11/26/24 04:00 11/26/24 04:10 Pulse Rate 87 95 H Respiratory Rate 26 H 29 H Blood Pressure 102/72 Pulse Oximetry 87 L 96 Oxygen Delivery Method Oxygen Flow Rate Fraction of Inspired Oxygen 11/26/24 04:20 11/26/24 04:30 11/26/24 04:40 Pulse Rate 90 80 79 Respiratory Rate 29 H 25 H 24 Blood Pressure Pulse Oximetry 96 95 94 Oxygen Delivery Method Oxygen Flow Rate Fraction of Inspired Oxygen 11/26/24 04:50 11/26/24 05:00 11/26/24 05:00 Pulse Rate 79 78 Respiratory Rate 22 22 Blood Pressure 97/62 Pulse Oximetry 92 93 Oxygen Delivery Method Oxygen Flow Rate Fraction of Inspired Oxygen 11/26/24 05:10 11/26/24 05:20 11/26/24 05:30 Pulse Rate 76 77 75 Respiratory Rate 22 22 21 Blood Pressure Pulse Oximetry 93 94 94 Oxygen Delivery Method Oxygen Flow Rate Fraction of Inspired Oxygen 11/26/24 05:40 11/26/24 05:50 11/26/24 06:00 Pulse Rate 74 82 Respiratory Rate 20 24 Blood Pressure 128/80 Pulse Oximetry 96 98 Oxygen Delivery Method Oxygen Flow Rate Fraction of Inspired Oxygen 11/26/24 06:00 11/26/24 07:00 11/26/24 07:00 Pulse Rate 74 70 Respiratory Rate 21 20 Blood Pressure 123/78 Pulse Oximetry 97 97 Oxygen Delivery Method Oxygen Flow Rate 4 4 Fraction of Inspired Oxygen 11/26/24 08:00 11/26/24 08:00 11/26/24 08:37 Pulse Rate 91 H Respiratory Rate 30 H Blood Pressure 130/68 Pulse Oximetry 94 96 Oxygen Delivery Method Nasal Cannula Oxygen Flow Rate 4 4 4 Fraction of Inspired Oxygen 36 11/26/24 08:53 Pulse Rate 84 Respiratory Rate 26 H Blood Pressure Pulse Oximetry 95 Oxygen Delivery Method Oxygen Flow Rate 4 Fraction of Inspired Oxygen Fraction of Inspired Oxygen 36 SaO2/FiO2 Ratio 266 Oxygen Delivery Method Nasal Cannula Oxygen Flow Rate 4 Narrative Exam Narrative: Increased wheezing with crackles from yesterday although still very minimal Objective Labs 11/26/24 04:50 11/26/24 04:50 Labs: Laboratory Results - last 24 hr 11/25/24 11/25/24 11/25/24 12:35 12:40 12:54 WBC 26.1 H RBC 4.81 Hgb 15.7 Hct 45.9 MCV 95.4 MCH 32.7 MCHC 34.3 RDW 13.8 Plt Count 324 Neut % (Auto) 92.5 H Lymph % (Auto) 4.6 L Montgomery % (Auto) 2.2 L Eos % (Auto) 0.1 L Baso % (Auto) 0.6 Neut # (Auto) 63926 H Lymph # (Auto) 1200 [place] # (Auto) 600 Eos # (Auto) 0 Baso # (Auto) 200 H Total Counted 100 Seg Neutrophils % 41.0 Band Neutrophils % 47.0 H Lymphocytes % (Manual) 3.0 L Monocytes % (Manual) 7.0 Basophils % (Manual) 1.0 Metamyelocytes % 1.0 H Neutrophils # (Manual) 23711 H RBC Morphology Normal morphology PT 16.2 H INR 1.4 H APTT 38 H ABG Sample Site Left radial ABG pH 7.36 ABG pCO2 27.7 L ABG pO2 334 H* ABG HCO3 16 L ABG Total CO2 15 L ABG O2 Saturation 100 ABG Base Excess -8.1 L Jose Test Positive O2 Delivery Device Bipap Sodium 130 L Potassium 4.1 Chloride 92 L Carbon Dioxide 14 L BUN 37 H Creatinine 3.27 H Estimated GFR 20 L BUN/Creatinine Ratio 11.3 Glucose 237 H Lactate 9.5 H* Calcium 9.3 Magnesium Total Bilirubin 1.9 H AST 104 H ALT 80 H Alkaline Phosphatase 287 H Total Creatine Kinase 240 H Troponin I 0.048 H NT-Pro-B Natriuret Pep 572 H Total Protein 8.4 H Albumin 4.0 Globulin 4.4 H Albumin/Globulin Ratio 0.9 L Lipase 97 Nasal Screen MRSA (PCR) Chlamy pneumoniae PCR Not detected Adenovirus (PCR) Not detected B. pertussis DNA (PCR) Not detected B.parapertussis DNA PCR Not detected Coronavirus OC43 (PCR) Not detected Coronavirus HKU1 (PCR) Not detected Coronavirus 229E (PCR) Not detected SARS-CoV-2 (PCR) Not detected Coronavirus NL63 (PCR) Not detected Human Metapneumovir PCR Not detected Influenza Type A (PCR) Equivocal H Influenza Type B (PCR) Not detected M. pneumoniae (PCR) Not detected Parainfluenza 1 (PCR) Not detected Parainfluenza 2 (PCR) Not detected Parainfluenza 3 (PCR) Not detected Parainfluenza 4 (PCR) Not detected RSV (PCR) Not detected Entero/Rhino (PCR) Not detected 11/25/24 11/25/24 11/25/24 14:40 16:40 21:30 WBC RBC Hgb Hct MCV MCH MCHC RDW Plt Count Neut % (Auto) Lymph % (Auto) Montgomery % (Auto) Eos % (Auto) Baso % (Auto) Neut # (Auto) Lymph # (Auto) Montgomery # (Auto) Eos # (Auto) Baso # (Auto) Total Counted Seg Neutrophils % Band Neutrophils % Lymphocytes % (Manual) Monocytes % (Manual) Basophils % (Manual) Metamyelocytes % Neutrophils # (Manual) RBC Morphology PT INR APTT ABG Sample Site ABG pH ABG pCO2 ABG pO2 ABG HCO3 ABG Total CO2 ABG O2 Saturation ABG Base Excess Jose Test O2 Delivery Device Sodium 129 L Potassium 3.5 Chloride 99 Carbon Dioxide 17 L BUN 37 H Creatinine 2.93 H Estimated GFR 23 L BUN/Creatinine Ratio 12.6 Glucose 147 H Lactate 4.4 H* 2.0 Calcium 7.8 L Magnesium Total Bilirubin AST ALT Alkaline Phosphatase Total Creatine Kinase Troponin I 0.058 H NT-Pro-B Natriuret Pep Total Protein Albumin Globulin Albumin/Globulin Ratio Lipase Nasal Screen MRSA (PCR) Not detected Chlamy pneumoniae PCR Adenovirus (PCR) B. pertussis DNA (PCR) B.parapertussis DNA PCR Coronavirus OC43 (PCR) Coronavirus HKU1 (PCR) Coronavirus 229E (PCR) SARS-CoV-2 (PCR) Coronavirus NL63 (PCR) Human Metapneumovir PCR Influenza Type A (PCR) Influenza Type B (PCR) M. pneumoniae (PCR) Parainfluenza 1 (PCR) Parainfluenza 2 (PCR) Parainfluenza 3 (PCR) Parainfluenza 4 (PCR) RSV (PCR) Entero/Rhino (PCR) 11/26/24 04:50 WBC 19.3 H RBC 3.64 L Hgb 11.4 L Hct 34.2 L MCV 94.1 MCH 31.4 MCHC 33.4 RDW 13.8 Plt Count 230 Neut % (Auto) 90.5 H Lymph % (Auto) 4.9 L Montgomery % (Auto) 4.3 Eos % (Auto) 0.0 L Baso % (Auto) 0.3 Neut # (Auto) 05734 H Lymph # (Auto) 900 L Montgomery # (Auto) 800 Eos # (Auto) 0 Baso # (Auto) 100 Total Counted Seg Neutrophils % Band Neutrophils % Lymphocytes % (Manual) Monocytes % (Manual) Basophils % (Manual) Metamyelocytes % Neutrophils # (Manual) RBC Morphology PT INR APTT ABG Sample Site ABG pH ABG pCO2 ABG pO2 ABG HCO3 ABG Total CO2 ABG O2 Saturation ABG Base Excess Jose Test O2 Delivery Device Sodium 133 L Potassium 3.8 Chloride 106 Carbon Dioxide 17 L BUN 39 H Creatinine 2.73 H Estimated GFR 25 L BUN/Creatinine Ratio 14.3 Glucose 148 H Lactate Calcium 7.1 L Magnesium 1.7 Total Bilirubin 0.8 AST 52 ALT 38 Alkaline Phosphatase 110 D Total Creatine Kinase Troponin I NT-Pro-B Natriuret Pep Total Protein 6.0 L Albumin 2.6 L Globulin 3.4 Albumin/Globulin Ratio 0.8 L Lipase Nasal Screen MRSA (PCR) Chlamy pneumoniae PCR Adenovirus (PCR) B. pertussis DNA (PCR) B.parapertussis DNA PCR Coronavirus OC43 (PCR) Coronavirus HKU1 (PCR) Coronavirus 229E (PCR) SARS-CoV-2 (PCR) Coronavirus NL63 (PCR) Human Metapneumovir PCR Influenza Type A (PCR) Influenza Type B (PCR) M. 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) Right shoulder tendonitis (1995) Anxiety (1999) Chronic back pain (2004) Chicken pox (1965) Hemorrhoids (2004) DC (myocardial infarction) (07/18/16) Supraventricular tachycardia (08/13/15) Mixed hyperlipidemia (08/13/15) Recurrent major depressive disorder, in full remission (08/13/15) Type 2 diabetes mellitus without complication (01/18/13) Essential hypertension Surgical History History of colonoscopy Anesthesia History of heart artery stent (07/2016) History of hand surgery (1997) History of shoulder surgery (1995) Status post insertion of drug-eluting stent into right coronary artery for coronary artery disease (09/19/16) Family History Father Hypertension Mental health problem Cirrhosis Heart disease Mother Cancer COPD (chronic obstructive pulmonary disease) Lung disease Grandfather No problems noted. Grandmother No problems noted. Grandmother No problems noted. Sister No problems noted. 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 Pneumonia-likely combination of bacterial pneumonia plus Influenza A. Will continue with Tamiflu at renal doses 30 mg b.i.d., as well as the antibiotic therapy. Continue oxygen replacement therapy. Continue treatment for COPD with IV steroids and nebulizer treatments. I am going to back off a bit on the parental steroids given the mild nature of his pre-existing COPD as well as the hyperglycemia. Exam not really consistent with severe COPD exacerbation, so I think he can be treated with lower doses 2. Diabetes-continue with carb consistent diet as of this morning as well as insulin coverage 3. Acute kidney injury-continue with IV fluid resuscitation/replacement. Hopefully will have continued improvement in numbers. Plan to rechecked tomorrow 4. Abnormal LFTs-these all resolved likely suggesting combination of the dehydration plus infectious etiology. Time-Based Coding :: [TOTAL MINUTES] spent with patient and on the chart (including review of chart, obtaining history, exam, reviewing outside data, placing orders, documenting exam and treatment plan, and counseling patient) on [DATE]. PROFEE Addiction Psychiatrist Document charge(s): Yes Charge Codes Subsequent inpatient/observation care: 20615
[2024-11-26] MEDS: OSELTAMIVIR 75 MG CAPSULE 30 MG PO ×2 (09:18→20:55)
--- NOTE | 2024-11-26 14:28 | DI.ECHO.S_ITS ---
[facility] : : [address] : : [place] : : [id number] : : Phone: [phone] Echocardiogram Report + :Name: AGNIESZKA NEAL Study Date: 11/26/2024 Height: 66 in : :[facility] : Weight: 145 lb : : Gender: Male BSA: 1.7 m2 : :: 1960 Age: 64 yrs BP: 120/74 mmHg: :Reason For Study: sepsis :: Performed By: Jewelry Setter Beckie Rodriguezfield : :Referring: PORSHA MAYA R : + Interpretation Summary The left ventricle is normal in size and wall thickness. Left ventricular systolic function appears normal without focal wall motion abnormalities. The ejection fraction is estimated to be 60-65%. Diastolic parameters suggest probable normal left ventricular diastolic function and normal filling pressures. The right ventricle is at the upper limits of normal in size. The right ventricular systolic function is normal. Pulmonary artery pressures cannot be estimated because of the lack of a measurable TR jet velocity but the IVC suggests a CVP of around 3 mmHg. The left atrium is small. There is no significant valvular heart disease. The aortic root is normal size. Procedure: A two-dimensional transthoracic echocardiogram with color flow and Doppler was performed. The study quality was technically adequate. Images from the parasternal window were difficult to obtain and are suboptimal in quality. The study was done portably. Comparison is made with the echocardiogram of 07/19/2016 from [facility]. The heart rate ranged between 89-99 bpm during the study. Left Ventricle: The left ventricle is normal in size and wall thickness. There is no thrombus. There is no ventricular septal defect visualized. Left ventricular systolic function appears normal without focal wall motion abnormalities. The ejection fraction is estimated to be 60-65%. Diastolic parameters suggest probable normal left ventricular diastolic function and normal filling pressures. Right Ventricle: The right ventricle is at the upper limits of normal in size. The right ventricular systolic function is normal. Atria: The left atrium is small. The right atrium is normal in size. There is no Doppler evidence for an interatrial shunt. Mitral Valve: The mitral valve leaflets appear normal. There is no evidence of stenosis, fluttering, or prolapse. There is trace mitral regurgitation. Aortic Valve: The aortic valve is normal in structure and function. Best seen subcostally. There is no aortic valve stenosis. No aortic regurgitation is present. Tricuspid Valve: The tricuspid valve leaflets are thin and pliable. There is a trace or physiologic amount of tricuspid regurgitation. Pulmonary artery pressures cannot be estimated because of the lack of a measurable TR jet velocity but the IVC suggests a CVP of around 3 mmHg. Pulmonic Valve: The pulmonic valve leaflets are thin and pliable; valve motion is normal. Best seen subcostally. There is no pulmonic valvular regurgitation. There is no significant valvular heart disease. Great Vessels: The aortic root is normal size. The aortic arch could not be visualized. The ascending aorta could not be visualized. The IVC is of normal diameter and collapses greater than 50% with a sniff. This suggests a low right atrial pressure of 3 mm Hg. Pericardium/ Pleura There is no pericardial effusion. There is no pleural effusion. MMode/2D Measurements & Calculations LVIDd: 5.0 cm LVOT diam: 1.8 cm LVIDs: 3.5 cm Ao root diam: 3.6 cm FS: 30.7 % IVSd: 0.59 cm LVPWd: 0.75 cm LV heredia. diameter/BSA (cm/m^2): 2.9 LV sys. diameter/BSA (cm/m^2): 2.0 LA A2 area: 11.4 cm2 RA long axis: 4.3 cm LA A4 area: 10.5 cm2 RA area: 12.5 cm2 LA length (vol): 4.0 cm RA vol: 30.5 ml LA vol: 25.2 ml RA : 17.5 ml/m2 LA vol index: 14.4 ml/m2 IVC diam: 1.8 cm RVD1 (basal): 3.8 cm TAPSE: 2.0 cm Doppler Measurements & Calculations Ao V2 max: 130.9 cm/sec LVOT Max Aleyda: 101.8 cm/sec Ao V2 mean: 101.5 cm/sec LV V1 max P.1 mmHg Ao max P.9 mmHg LV V1 VTI: 19.1 cm Ao mean P.4 mmHg SUNG(I,D): 1.9 cm2 Ao V2 VTI: 25.8 cm SUNG(V,D): 2.0 cm2 sev ratio: 0.74 SUNG indexed to BSA (cm^2/m^2): 1.1 MV E max aleyda: 88.7 cm/sec PA V2 max: 81.2 cm/sec MV A max aleyda: 37.2 cm/sec PA V2 mean: 63.2 cm/sec MV E/A: 2.4 PA mean P.7 mmHg Med Peak E' Aleyda: 6.1 cm/sec PA pr(Accel): 25.1 mmHg E/E' med: 14.5 Lat Peak E' Aleyda: 13.0 cm/sec E/E' lat: 6.8 E/e' average: 10.7 MV dec time: 0.18 sec SV(LVOT): 49.6 ml Reading Physician:05:00 PM
--- NOTE | 2024-11-26 17:39 | PC.NURSE ---
Pt stable on 4L NC throughout shift. HR, BP stable throughout shift. No complaints of pain. Diet advanced per order. Updated sister via telephone, pt has cell phone at bedside.
[2024-11-26] MEDS: ATORVASTATIN 20 MG TABLET 40 MG PO (20:55)
[2024-11-26] MEDS: AZITHROMYCIN 500 MG in DEXTROSE 5% IN WATER 250 ML 250 MG IV (21:01)
[2024-11-26] MEDS: SODIUM CHLORIDE 0.9% 1,000 ML 125 ML IV (23:45)
[2024-11-27] VITALS (135 sets, daily range): BP systolic 116–159; BP diastolic 68–110; PULSE 61–117; RESP 12–46; TEMP 27–36.5; O2SAT 79–97
[2024-11-27] MEDS: guaiFENesin Solution 100 MG/5 ML UDC PO (02:10)
[2024-11-27] MEDS: AMPICILLIN/SULBACTAM 3 GM 3 GM in SODIUM CHLORIDE 0.9% 100 ML IV ×2 (03:30→16:04)
[2024-11-27 04:46] LABS: Add Manual Diff / Slide Review NO; Basophils Absolute Auto 0 /uL (0-100); Basophils Percent Auto 0.2 % (0-2); Eosinophils Absolute Auto 0 /uL (0-450); Hematocrit 35.9 % (41-53); Hemoglobin 12.1 g/dL (13.5-17.5); Lymphocytes Absolute Auto 700 /uL (1100-4500); Lymphocytes Percent Auto 3.3 % (25-40); Mean Corpuscular HGB Conc 33.8 % (30-36); Mean Corpuscular Volume 94.6 fL (80-100); Monocytes Absolute Auto 1000 /uL (0-900); Monocytes Percent Auto 5.1 % (3-14); Neutrophils Absolute Auto 18900 /uL (1500-7000); Neutrophils Percent Auto 91.4 % (50-75); Platelet Count 216 X10^3/uL (150-400); Red Cell Distribution Width 13.9 % (11.6-14.8); White Blood Cell Count 20.7 X10^3/uL (4.5-11.0)
[2024-11-27 05:02] LABS: BUN Creatinine Ratio 16.7 (6-22); Blood Urea Nitrogen 42 mg/dL (9-20); Calcium 6.7 mg/dL (8.4-10.2); Carbon Dioxide 14 mmol/L (22-32); Chloride 109 mmol/L (98-107); Estimated Glomerular Filt Rate 28 mL/min (>60); Glucose 172 mg/dL (80-110); HEMOLYSIS < 15 (0-50); Potassium 3.3 mmol/L (3.4-5.1); Sodium 135 mmol/L (137-145)
[2024-11-27] MEDS: ALBUTEROL 2.5 MG/3 ML NEB (ADULT) INH ×4 (05:21→22:11)
[2024-11-27 07:06] LABS: Allen Test for ABG Passed? Positive; Base Excess ABG -8.2 mmol/L (-2-3); Blood Gas Collection Site Left Radial; HCO3 ABG 16 mmol/L (23-27); Oxygen Saturation ABG 92 % (95-100); PCO2 ABG 27.2 mmHg (35-45); PO2 ABG 64 mmHg (80-100); TCO2 ABG 15 mmol/L (23-27); pH ABG 7.37 (7.35-7.45)
--- NOTE | 2024-11-27 07:32 | CM.DANOTE ---
Initial DCP Assessment Note Pt is a 64 yo male, resident of [place], arrives with severe SOB, admitted for management of PNA-suspected combo bacterial and FLU A. PCP: Santi Carroll Payer: TANG Reviewed chart, pt lives independently in [place]. Patient appears to be at his functional and cognitive baseline and will return home when medically cleared to do so. No barriers identified at this time to patient's safe discharge home w/close outpatient f/u recommended. CM team will plan to follow clinical course closely in case any DC needs or concerns arise. SCOTTY Kyle Discharge Planning/Care Management CM Discharge Assessment Start: 11/27/24 07:29 Freq: Status: Active Protocol: Document 11/27/24 07:30 SYED (Rec: 11/27/24 07:32 SYED [id number]) Discharge Planning Assessment Assigned Pan Pusher SCOTTY Gomez DPOA/Assigned Designee Name Manuel Walterselzbieta, friend Contact Information [phone] Advance Directives? No History Provided By Medical Record Prior Living Arrangements House Household Members none Type of transporation used prior to Drives own vehicle admit Independent with ADL's Yes Is patient alert and oriented? Yes Barriers to Discharge No Discharge Plan Home Transportation Arrangement Friend Referrals Initiated None needed
--- NOTE | 2024-11-27 07:54 | DI.RAD.S_ITS ---
PROCEDURE: XR CHEST 1V INDICATIONS: Increased WOB, oxygen needs TECHNIQUE: One view of the chest was acquired. COMPARISON: [facility], CT, CT ANGIO CHEST PE PROTOCOL, 11/25/2024, 13:25. [facility], CR, XR CHEST 2V, 06/08/2023, 15:25. FINDINGS: Surgical changes and devices: None. Lungs and pleura: Interval increase in diffuse ill-defined opacities of the bilateral hemithoraces most pronounced in the upper lung zones bilaterally. No pneumothorax or substantial pleural effusion. Mediastinum: Mediastinal contours appear normal. Heart size is normal. Bones and chest wall: No suspicious bony lesions. Overlying soft tissues appear unremarkable. IMPRESSION: Interval increase in diffuse ill-defined opacities of the bilateral hemithoraces most pronounced in the upper lung zones bilaterally. Findings may represent progression of infectious process given appearance on recent chest CT. However, asymmetric pulmonary edema may have a similar appearance if clinically appropriate. Dictated by: Jose Roberto Tucker M.D. on 11/27/2024 at 8:38 Approved by: Jose Roberto Tucker M.D. on 11/27/2024 at 8:40
--- NOTE | 2024-11-27 07:55 | PC.NURSE ---
Pt increased WOB, on 15L oximask, dyspnea, diaphoretic, pt reporting feeling way worse. Crackles in the bilat lower lung adams and diminished. Provider Dr. Carroll notified. New orders received.
[2024-11-27] MEDS: POTASSIUM CHLORIDE IN WATER 10 MEQ/100 ML PIGGYBACK 100 MEQ IV ×6 (09:00→15:14)
[2024-11-27] MEDS: PANTOPRAZOLE 40 MG VIAL IV (09:00)
[2024-11-27 09:04] LABS: BUN Creatinine Ratio 16.9 (6-22); Blood Urea Nitrogen 43 mg/dL (9-20); Calcium 6.6 mg/dL (8.4-10.2); Carbon Dioxide 13 mmol/L (22-32); Chloride 110 mmol/L (98-107); Creatine Kinase 305 U/L (55-170); Estimated Glomerular Filt Rate 28 mL/min (>60); Glucose 166 mg/dL (80-110); HEMOLYSIS < 15 (0-50); Potassium 3.3 mmol/L (3.4-5.1); Sodium 135 mmol/L (137-145)
[2024-11-27] MEDS: SODIUM CHLORIDE 0.9% 1,000 ML 75 ML IV ×2 (09:04→16:47)
[2024-11-27] MEDS: methylPREDNISolone 125 MG/2 ML VIAL 60 MG IV ×2 (09:04→20:25)
[2024-11-27] MEDS: FUROSEMIDE 40 MG/4 ML VIAL IV ×2 (09:08→20:24)
[2024-11-27] MEDS: ENOXAPARIN 30 MG/0.3 ML SYRINGE SUBCUT (09:08)
[2024-11-27] MEDS: SODIUM CHLORIDE 0.9% FLUSH 10 ML IV ×2 (09:08→20:27)
--- NOTE | 2024-11-27 09:12 | EKG_ITS ---
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
[2024-11-27 09:15] LABS: NT-proBNP (BNP-Adult 18+) 5800 pg/mL (<125)
--- NOTE | 2024-11-27 09:18 | P.PN_ITS ---
Subjective Subjective Date Patient Seen: 11/27/24 Time Patient Seen: 09:18 Interval history: Overnight patient's oxygen requirement has gone up. He went from 3-4 L nasal cannula to requiring 50% FiO2. Seem to have increased work of breathing somewhat diaphoretic. Switched over to BiPAP which seem to be somewhat helpful. Blood pressure heart rate of remained stable. Blood gas performed which showed more hypoxia and less ventilatory issues with normal to low pCO2 Chest x-ray done this morning demonstrates increased infiltrate consistent with the rehydration after his presentation but also possibly some atypical pulmonary edema Echo unfortunately report his still pending out there in the ether somewhere, so do not have that report 12 lead ECG unchanged from previous Lab work shows BNP 5800 as well as troponin 0.171 which is technically high When seen this morning on BiPAP patient reports feeling some better easier breathing. Exam Vital Signs (past 8 hours): - 11/27/24 01:20 11/27/24 01:30 11/27/24 01:40 Pulse Rate 89 85 75 Respiratory Rate 32 H 28 H 23 Blood Pressure Pulse Oximetry 85 L 92 91 Oxygen Flow Rate Fraction of Inspired Oxygen 11/27/24 01:50 11/27/24 02:00 11/27/24 02:01 Pulse Rate 85 107 H Respiratory Rate 26 H 46 H Blood Pressure 147/93 H Pulse Oximetry 90 L 89 L Oxygen Flow Rate Fraction of Inspired Oxygen 11/27/24 02:01 11/27/24 02:10 11/27/24 02:20 Pulse Rate 113 H 92 H 92 H Respiratory Rate 43 H 33 H 28 H Blood Pressure Pulse Oximetry 86 L 89 L 87 L Oxygen Flow Rate Fraction of Inspired Oxygen 11/27/24 02:30 11/27/24 02:40 11/27/24 02:50 Pulse Rate 87 86 76 Respiratory Rate 27 H 28 H 25 H Blood Pressure Pulse Oximetry 90 L 90 L 91 Oxygen Flow Rate 4 Fraction of Inspired Oxygen 11/27/24 03:00 11/27/24 03:00 11/27/24 03:10 Pulse Rate 74 74 Respiratory Rate 24 24 Blood Pressure 144/78 H Pulse Oximetry 89 L 89 L Oxygen Flow Rate Fraction of Inspired Oxygen 11/27/24 03:20 11/27/24 03:30 11/27/24 03:40 Pulse Rate 72 76 92 H Respiratory Rate 25 H 24 31 H Blood Pressure Pulse Oximetry 90 L 89 L 90 L Oxygen Flow Rate Fraction of Inspired Oxygen 11/27/24 03:50 11/27/24 04:00 11/27/24 04:00 Pulse Rate 82 72 Respiratory Rate 24 21 Blood Pressure 155/80 H Pulse Oximetry 90 L 90 L Oxygen Flow Rate 4 Fraction of Inspired Oxygen 11/27/24 04:10 11/27/24 04:20 11/27/24 04:30 Pulse Rate 74 83 80 Respiratory Rate 25 H 29 H 24 Blood Pressure Pulse Oximetry 89 L 89 L 91 Oxygen Flow Rate Fraction of Inspired Oxygen 11/27/24 04:40 11/27/24 04:50 11/27/24 05:00 Pulse Rate 73 70 74 Respiratory Rate 25 H 24 24 Blood Pressure Pulse Oximetry 89 L 89 L 88 L Oxygen Flow Rate Fraction of Inspired Oxygen 11/27/24 05:01 11/27/24 05:01 11/27/24 05:10 Pulse Rate 79 84 Respiratory Rate 25 H 26 H Blood Pressure 131/76 Pulse Oximetry 89 L 87 L Oxygen Flow Rate Fraction of Inspired Oxygen 11/27/24 05:20 11/27/24 05:30 11/27/24 05:40 Pulse Rate 91 H 93 H 86 Respiratory Rate 28 H 26 H 25 H Blood Pressure Pulse Oximetry 86 L 87 L 87 L Oxygen Flow Rate Fraction of Inspired Oxygen 11/27/24 05:50 11/27/24 06:00 11/27/24 06:01 Pulse Rate 87 116 H 117 H Respiratory Rate 23 35 H 35 H Blood Pressure Pulse Oximetry 87 L 86 L 83 L Oxygen Flow Rate 10 Fraction of Inspired Oxygen 11/27/24 06:01 11/27/24 07:00 11/27/24 07:00 Pulse Rate 94 H Respiratory Rate 30 H Blood Pressure 135/75 130/68 Pulse Oximetry 90 L Oxygen Flow Rate 15 Fraction of Inspired Oxygen 11/27/24 07:10 11/27/24 07:20 11/27/24 07:30 Pulse Rate 87 85 100 H Respiratory Rate 27 H 26 H 31 H Blood Pressure Pulse Oximetry 88 L 90 L 97 Oxygen Flow Rate 15 15 15 Fraction of Inspired Oxygen 11/27/24 07:40 11/27/24 07:50 11/27/24 07:52 Pulse Rate 88 95 H Respiratory Rate 25 H 31 H Blood Pressure Pulse Oximetry 93 93 92 Oxygen Flow Rate 15 15 15 Fraction of Inspired Oxygen 11/27/24 08:00 11/27/24 08:00 11/27/24 08:05 Pulse Rate 87 Respiratory Rate 29 H Blood Pressure 138/76 138/76 Pulse Oximetry 92 Oxygen Flow Rate 15 Fraction of Inspired Oxygen 0.50 11/27/24 08:10 11/27/24 08:20 11/27/24 08:30 Pulse Rate 85 85 86 Respiratory Rate 27 H 28 H 26 H Blood Pressure Pulse Oximetry 92 94 96 Oxygen Flow Rate Fraction of Inspired Oxygen 11/27/24 08:40 11/27/24 08:50 11/27/24 09:00 Pulse Rate 85 78 93 H Respiratory Rate 25 H 24 26 H Blood Pressure Pulse Oximetry 94 95 94 Oxygen Flow Rate Fraction of Inspired Oxygen Fraction of Inspired Oxygen 0.50 SaO2/FiO2 Ratio 266 Oxygen Delivery Method Nasal Cannula Oxygen Flow Rate 15 Objective ECG Impression: Unchanged from previous Imaging Chest x-ray: My impression: Increased bilateral infiltrates consistent with pneumonia but also pulmonary edema, compared to previous/emergency department chest x-ray Labs 11/27/24 04:20 11/27/24 08:39 Labs: Laboratory Results - last 24 hr 11/27/24 11/27/24 11/27/24 04:20 07:02 08:39 WBC 20.7 H RBC 3.80 L Hgb 12.1 L Hct 35.9 L MCV 94.6 MCH 32.0 MCHC 33.8 RDW 13.9 Plt Count 216 Neut % (Auto) 91.4 H Lymph % (Auto) 3.3 L [place] % (Auto) 5.1 Eos % (Auto) 0.0 L Baso % (Auto) 0.2 Neut # (Auto) 10298 H Lymph # (Auto) 700 L [place] # (Auto) 1000 H Eos # (Auto) 0 Baso # (Auto) 0 ABG Sample Site Left radial ABG pH 7.37 ABG pCO2 27.2 L ABG pO2 64 L ABG HCO3 16 L ABG Total CO2 15 L ABG O2 Saturation 92 L ABG Base Excess -8.2 L Jose Test Positive Sodium 135 L 135 L Potassium 3.3 L 3.3 L Chloride 109 H 110 H Carbon Dioxide 14 L 13 L BUN 42 H 43 H Creatinine 2.51 H 2.54 H Estimated GFR 28 L 28 L BUN/Creatinine Ratio 16.7 16.9 Glucose 172 H 166 H Hemoglobin A1c 7.0 H Calcium 6.7 L 6.6 L Total Creatine Kinase 305 H [facility] Medical History COPD (chronic obstructive pulmonary disease) Abnormal LFTs Coronary artery disease involving [place] heart without angina pectoris (~2015) Elevated PSA Diverticular disease of colon Gross hematuria (~04/2018) 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) Right shoulder tendonitis (1995) Anxiety (1999) Chronic back pain (2004) Chicken pox (1965) Hemorrhoids (2004) [place] (myocardial infarction) (07/18/16) Supraventricular tachycardia (08/13/15) Mixed hyperlipidemia (08/13/15) Recurrent major depressive disorder, in full remission (08/13/15) Type 2 diabetes mellitus without complication (01/18/13) Essential hypertension Surgical History History of colonoscopy Anesthesia History of heart artery stent (07/2016) History of hand surgery (1997) History of shoulder surgery (1995) Status post insertion of drug-eluting stent into right coronary artery for coronary artery disease (09/19/16) Family History Father Hypertension Mental health problem Cirrhosis Heart disease Mother Cancer COPD (chronic obstructive pulmonary disease) Lung disease Grandfather No problems noted. Grandmother No problems noted. Grandmother No problems noted. Sister No problems noted. Social History marital status: unmarried,single number of children: 0 household members: none lives independently: Yes caregiver/support person: No housing: house pets and animals: No education level: other (Bachelors degree, some grad schooling.) occupational status: disabled (Disabled retired.) Previous occupational history: [employer] travel history: over 6 months ago ([place]) leisure activities: games ([email or web address]) and reading Smoking Status: Current every day smoker Tobacco: How many years used: 38 Smokeless tobacco user: other (Cigarettes, Marijuana) quit status: considering quitting second hand exposure: Yes (1st and 2nd hand) alcohol intake: current substance use type: marijuana Assessment & Plan Assessment & Plan narrative: 1. Respiratory-patient with influenza A but also probably bacterial pneumonia. White blood cell count this morning is technically up a little bit but overall stable. Continue with current parental antibiotics as well as Tamiflu at renal doses. Based on blood gas patient seems to have more of a hypoxic issue rather than ventilation issue that has suggesting not COPD but maybe more than pneumonia and or pulmonary edema. Would suggest flipping over to heated high- flow oxygen and take him off BiPAP. I will continue him on the parental steroids however given the underlying COPD. The steroids are relatively low- dose 2. Cardiac-patient with barely positive troponin. Will try and obtain echocardiogram report. Will need to trend his troponins but correction of his hypoxia and respiratory status is first step to helping with any cardiac ischemia that might or might not be present. Patient currently off of his home beta-madhavi therapy because of the hypotension upon admission. I think we can probably reinitiate that at low-dose. There does appear to be an element of pulmonary edema/congestive heart failure present as well and I am going to treat that with Lasix. Also I think we should back off on IV fluid administration given the volume overload/pulmonary edema. 3. Acute kidney injury-patient's creatinine is stable that has not necessarily a consistently better but certainly not worse. Definitely improved over status at time of admission. Unfortunately I think we are going to need to back off on IV fluid administration. I would not want to take it to 0 but will significantly reduce IV fluids by 50% and continue monitor renal function etcetera. Also need to correct electrolytes 4. Diabetes-A1c done this morning is actually quite good at 7.0. Fingerstick blood sugars have been up and down. Would probably benefit from slightly better control. Will increase coverage insulin slightly 5. Infectious disease-patient with documented Influenza A upon admission will continue and complete a 5 day course of Tamiflu. Continue with broad-spectrum IV parental antibiotics for presumed bacterial pneumonia on top of the viral pneumonia given his clinical course and picture. Time-Based Coding :: [TOTAL MINUTES] spent with patient and on the chart (including review of chart, obtaining history, exam, reviewing outside data, placing orders, documenting exam and treatment plan, and counseling patient) on [DATE]. PROFEE Textile Machine Mechanic Document charge(s): Yes Charge Codes Subsequent inpatient/observation care: [id number]
[2024-11-27 09:20] LABS: Troponin I 0.171 ng/mL (0.01-0.034)
--- NOTE | 2024-11-27 09:38 | EKG_ITS ---
[address] [address] Test Date: 2024-11-27 Pat Name: Zach Patiño Department: Room: 229 Gender: Male Log Handler: : 1960 Requested By: Order Number: [id number] Reading MD: Santi Carroll MD Measurements Intervals [place] Rate: 91 P: 59 [place]: 108 QRS: 39 QRSD: 122 T: 30 QT: 406 QTc: 499 Interpretive Statements Sinus rhythm with short [place] Right bundle branch block NO SIGNIFICANT CHANGE FROM PRIOR TRACING Electronically Signed On 11-27-2024 11:23:54 PST by Santi Carroll MD
[2024-11-27] MEDS: METOPROLOL IR 25 MG TABLET PO ×3 (10:04→20:27)
[2024-11-27] MEDS: ACETAMINOPHEN 325 MG TABLET 650 MG PO (10:04)
[2024-11-27] MEDS: NITROGLYCERIN OINT 1 INCH/GM OINT...G. 0.5 INCH TOP (10:21)
[2024-11-27 12:43] LABS: Creatine Kinase 321 U/L (55-170)
[2024-11-27] MEDS: INSULIN LISPRO 100 UNIT/ML 3ML VIAL SUBCUT (13:42)
[2024-11-27] MEDS: ALPRAZolam 0.25 MG TABLET 0.5 MG PO ×2 (13:47→20:25)
[2024-11-27 17:52] LABS: Troponin I 0.328 ng/mL (0.01-0.034)
[2024-11-27 19:14] LABS: Clostridium Difficile Tox PCR Negative for C. diff (Negative)
[2024-11-27] MEDS: OSELTAMIVIR 75 MG CAPSULE 30 MG PO (20:25)
[2024-11-27] MEDS: ATORVASTATIN 20 MG TABLET 40 MG PO (20:26)
[2024-11-27] MEDS: AZITHROMYCIN 500 MG in DEXTROSE 5% IN WATER 250 ML 250 MG IV (20:32)
[2024-11-28] VITALS (110 sets, daily range): BP systolic 131–166; BP diastolic 62–96; PULSE 55–92; RESP 20–46; TEMP 36.8; O2SAT 82–98
[2024-11-28] MEDS: AMPICILLIN/SULBACTAM 3 GM 3 GM in SODIUM CHLORIDE 0.9% 100 ML IV ×2 (03:30→15:30)
[2024-11-28] MEDS: SODIUM CHLORIDE 0.9% 1,000 ML 75 ML IV ×2 (05:26→18:08)
[2024-11-28 05:40] LABS: Hematocrit 36.6 % (41-53); Hemoglobin 12.5 g/dL (13.5-17.5); Mean Corpuscular HGB Conc 34.1 % (30-36); Mean Corpuscular Volume 93.7 fL (80-100); Platelet Count 201 X10^3/uL (150-400); Red Cell Distribution Width 14.2 % (11.6-14.8); White Blood Cell Count 18.1 X10^3/uL (4.5-11.0)
[2024-11-28 05:41] LABS: Add Manual Diff / Slide Review YES
[2024-11-28 05:48] LABS: BUN Creatinine Ratio 17.9 (6-22); Blood Urea Nitrogen 50 mg/dL (9-20); Calcium 6.6 mg/dL (8.4-10.2); Carbon Dioxide 16 mmol/L (22-32); Chloride 107 mmol/L (98-107); Estimated Glomerular Filt Rate 25 mL/min (>60); Glucose 166 mg/dL (80-110); HEMOLYSIS < 15 (0-50); Potassium 3.7 mmol/L (3.4-5.1); Sodium 136 mmol/L (137-145)
[2024-11-28 06:27] LABS: Neutrophils Absolute Manual 15928 /uL (3000-5900); RBC Morphology Normal Morphology; Total Cells Counted 100
--- NOTE | 2024-11-28 07:00 | DI.RAD.S_ITS ---
PROCEDURE: XR CHEST 1V INDICATIONS: chf TECHNIQUE: One view of the chest was acquired. COMPARISON: [facility], CR, XR CHEST 1V, 11/27/2024, 7:51. [facility], CR, XR CHEST 2V, 06/08/2023, 15:25. FINDINGS: Surgical changes and devices: None. Lungs and pleura: Bilateral hazy opacities. No significant pleural effusions or pneumothorax. Mediastinum: Mediastinal contours appear unchanged. Heart size is within normal limits. Bones and chest wall: No suspicious bony lesions. Overlying soft tissues appear unremarkable. IMPRESSION: Bilateral hazy opacities, similar. This could represent pulmonary edema or infectious/inflammatory etiology. No significant discrepancy with the overnight preliminary interpretation. Dictated by: Edd Oconnor M.D. on 11/28/2024 at 7:58 Approved by: Edd Oconnor M.D. on 11/28/2024 at 8:01
[2024-11-28] MEDS: ALBUTEROL 2.5 MG/3 ML NEB (ADULT) INH (07:18)
--- NOTE | 2024-11-28 07:37 | PM.PN.IH.1 ---
Subjective Subjective Date Patient Seen: 11/28/24 Time Patient Seen: 07:37 Interval history: Patient continues to require heated high-flow oxygen, perhaps slightly increased. However patient was feeling well enough yesterday that he wanted to go home This morning troponin is now greater than 1. Renal function not improved in fact slightly worse than yesterday. Patient with 1700 cc out and urine yesterday, not a large response therefore. White blood cell count minimally improved. Hemoglobin hematocrit stable. Chest x-ray been my view shows persistence of both ineffective type infiltrates as well as some degree of pulmonary edema, essentially unchanged from yesterday in my opinion Exam Vital Signs (past 8 hours): - 11/27/24 23:40 11/27/24 23:50 11/28/24 00:00 Pulse Rate 81 82 Respiratory Rate 42 H 40 H Blood Pressure 131/81 Pulse Oximetry 91 89 L Oxygen Delivery Method Oxygen Flow Rate Fraction of Inspired Oxygen 11/28/24 00:00 11/28/24 00:10 11/28/24 00:20 Pulse Rate 72 72 74 Respiratory Rate 32 H 31 H 32 H Blood Pressure Pulse Oximetry 94 95 94 Oxygen Delivery Method Oxygen Flow Rate Fraction of Inspired Oxygen 11/28/24 00:30 11/28/24 00:40 11/28/24 00:50 Pulse Rate 68 62 71 Respiratory Rate 28 H 29 H 30 H Blood Pressure Pulse Oximetry 95 96 95 Oxygen Delivery Method Oxygen Flow Rate Fraction of Inspired Oxygen 11/28/24 01:00 11/28/24 01:00 11/28/24 01:10 Pulse Rate 63 66 Respiratory Rate 42 H 27 H Blood Pressure 143/82 H Pulse Oximetry 95 95 Oxygen Delivery Method Oxygen Flow Rate Fraction of Inspired Oxygen 11/28/24 01:20 11/28/24 01:30 11/28/24 01:40 Pulse Rate 69 78 70 Respiratory Rate 29 H 42 H 29 H Blood Pressure Pulse Oximetry 95 95 95 Oxygen Delivery Method Oxygen Flow Rate Fraction of Inspired Oxygen 11/28/24 01:50 11/28/24 02:00 11/28/24 02:10 Pulse Rate 68 70 88 Respiratory Rate 31 H 32 H 46 H Blood Pressure Pulse Oximetry 95 96 84 L Oxygen Delivery Method Oxygen Flow Rate Fraction of Inspired Oxygen 11/28/24 02:20 11/28/24 02:30 11/28/24 02:40 Pulse Rate 76 78 72 Respiratory Rate 38 H 33 H 34 H Blood Pressure Pulse Oximetry 94 92 94 Oxygen Delivery Method Oxygen Flow Rate Fraction of Inspired Oxygen 11/28/24 02:50 11/28/24 03:00 11/28/24 03:10 Pulse Rate 71 68 61 Respiratory Rate 30 H 33 H 27 H Blood Pressure Pulse Oximetry 95 95 95 Oxygen Delivery Method Oxygen Flow Rate Fraction of Inspired Oxygen 11/28/24 03:20 11/28/24 03:30 11/28/24 03:40 Pulse Rate 66 66 67 Respiratory Rate 26 H 26 H 24 Blood Pressure Pulse Oximetry 93 93 92 Oxygen Delivery Method Oxygen Flow Rate Fraction of Inspired Oxygen 11/28/24 03:50 11/28/24 04:00 11/28/24 04:00 Pulse Rate 65 63 66 Respiratory Rate 25 H 25 H 24 Blood Pressure 143/62 H Pulse Oximetry 92 92 92 Oxygen Delivery Method Oxygen Flow Rate Fraction of Inspired Oxygen 11/28/24 04:10 11/28/24 04:20 11/28/24 04:30 Pulse Rate 92 H 80 58 L Respiratory Rate 43 H 34 H 25 H Blood Pressure Pulse Oximetry 82 L 90 L 91 Oxygen Delivery Method Oxygen Flow Rate Fraction of Inspired Oxygen 11/28/24 04:40 11/28/24 04:50 11/28/24 05:00 Pulse Rate 74 72 55 L Respiratory Rate 30 H 30 H 26 H Blood Pressure Pulse Oximetry 93 94 94 Oxygen Delivery Method Oxygen Flow Rate Fraction of Inspired Oxygen 11/28/24 05:10 11/28/24 05:20 11/28/24 05:30 Pulse Rate 75 65 71 Respiratory Rate 32 H 23 28 H Blood Pressure Pulse Oximetry 90 L 92 94 Oxygen Delivery Method Oxygen Flow Rate Fraction of Inspired Oxygen 11/28/24 05:40 11/28/24 05:50 11/28/24 06:00 Pulse Rate 59 L 90 77 Respiratory Rate 23 37 H 32 H Blood Pressure Pulse Oximetry 92 88 L 93 Oxygen Delivery Method Oxygen Flow Rate 50 Fraction of Inspired Oxygen 11/28/24 07:18 11/28/24 07:18 Pulse Rate 74 74 Respiratory Rate 24 24 Blood Pressure Pulse Oximetry 95 Oxygen Delivery Method High Flow Nasal Cannula Oxygen Flow Rate Fraction of Inspired Oxygen 75 Fraction of Inspired Oxygen 75 SaO2/FiO2 Ratio 180 Oxygen Delivery Method High Flow Nasal Cannula Oxygen Flow Rate 50 Objective Labs 11/28/24 04:40 11/28/24 04:40 Labs: Laboratory Results - last 24 hr 11/27/24 11/27/24 11/27/24 08:39 12:25 17:22 WBC RBC Hgb Hct MCV MCH MCHC RDW Plt Count Neut % (Auto) Lymph % (Auto) [place] % (Auto) Eos % (Auto) Baso % (Auto) Lymph # (Auto) [place] # (Auto) Baso # (Auto) Total Counted Seg Neutrophils % Band Neutrophils % Lymphocytes % (Manual) Atypical Lymphs % Monocytes % (Manual) Neutrophils # (Manual) RBC Morphology Sodium 135 L Potassium 3.3 L Chloride 110 H Carbon Dioxide 13 L BUN 43 H Creatinine 2.54 H Estimated GFR 28 L BUN/Creatinine Ratio 16.9 Glucose 166 H Calcium 6.6 L Total Creatine Kinase 305 H 321 H Troponin I 0.171 H* 0.220 H* 0.328 H* NT-Pro-B Natriuret Pep 5800 H C. difficile Tox (PCR) 11/27/24 11/28/24 18:00 04:40 WBC 18.1 H RBC 3.90 L Hgb 12.5 L Hct 36.6 L MCV 93.7 MCH 32.0 MCHC 34.1 RDW 14.2 Plt Count 201 Neut % (Auto) Not Reportable Lymph % (Auto) Not Reportable [place] % (Auto) Not Reportable Eos % (Auto) Not Reportable Baso % (Auto) Not Reportable Lymph # (Auto) Not Reportable [place] # (Auto) Not Reportable Baso # (Auto) Not Reportable Total Counted 100 Seg Neutrophils % 78.0 H Band Neutrophils % 10.0 H Lymphocytes % (Manual) 7.0 L Atypical Lymphs % 1.0 H Monocytes % (Manual) 4.0 Neutrophils # (Manual) 80312 H RBC Morphology Normal morphology Sodium 136 L Potassium 3.7 Chloride 107 Carbon Dioxide 16 L BUN 50 H Creatinine 2.80 H Estimated GFR 25 L BUN/Creatinine Ratio 17.9 Glucose 166 H Calcium 6.6 L Total Creatine Kinase Troponin I 1.040 H* NT-Pro-B Natriuret Pep C. difficile Tox (PCR) Negative for c. 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) Right shoulder tendonitis (1995) Anxiety (1999) Chronic back pain (2004) Chicken pox (1965) Hemorrhoids (2004) [place] (myocardial infarction) (07/18/16) Supraventricular tachycardia (08/13/15) Mixed hyperlipidemia (08/13/15) Recurrent major depressive disorder, in full remission (08/13/15) Type 2 diabetes mellitus without complication (01/18/13) Essential hypertension Surgical History History of colonoscopy Anesthesia History of heart artery stent (07/2016) History of hand surgery (1997) History of shoulder surgery (1995) Status post insertion of drug-eluting stent into right coronary artery for coronary artery disease (09/19/16) Family History Father Hypertension Mental health problem Cirrhosis Heart disease Mother Cancer COPD (chronic obstructive pulmonary disease) Lung disease Grandfather No problems noted. Grandmother No problems noted. Grandmother No problems noted. Sister No problems noted. Social History marital status: unmarried,single number of children: 0 household members: none lives independently: Yes caregiver/support person: No housing: house pets and animals: No education level: other (Bachelors degree, some grad schooling.) occupational status: disabled (Disabled retired.) Previous occupational history: [employer] travel history: over 6 months ago ([place]) leisure activities: games ([employer] games) and reading Smoking Status: Current every day smoker Tobacco: How many years used: 38 Smokeless tobacco user: other (Cigarettes, Marijuana) quit status: considering quitting second hand exposure: Yes (1st and 2nd hand) alcohol intake: current substance use type: marijuana Assessment & Plan Assessment & Plan narrative: 1. Respiratory-I think a combination of some degree of congestive heart failure/volume overload as well as certainly significant pneumonia. Continue current broad-spectrum IV antibiotics for severe community-acquired pneumonia. Continue with diuretic therapy for now. Continue with oxygen replacement therapy as necessary. Blood gases done yesterday demonstrated adequate ventilation but hypoxia. This point I think this is certainly more of pneumonia/congestive heart failure issue rather than the addition of COPD exacerbation etcetera. 2. Cardiac-patient now with evidence I think fairly classic for NSTEMI. I had assumed the borderline troponins in the 0.2/0.1 range were least in part due to his renal dysfunction but that does not appear to be the case currently. Patient has been placed on unfractionated heparin infusion and will need to be transferred to facility with Cardiology and or catheterization lab for further evaluation. Discussed briefly with Cardiology this morning. Patient was not been seen by Cardiology since 2016, does have a history of stent into the right coronary as noted above 3. Diabetes-patient's blood sugars have been adequately controlled. No reason to make any changes in that today 4. Hypertension-patient's blood pressure has been adequately controlled not an active issue at this time. He was tolerating the topical nitrates which I started yesterday over concern about possible ischemia Overall patient is I think even more critical today than he was yesterday with evidence of an NSTEMI on top of his severe pneumonia with hypoxia. Continue treatment of both issues and he was certainly benefit from transfer to a facility with Cardiology and potentially even Pulmonary Medicine to assist in management of these 2 organ systems. We have begun a search for facilities that have the availability for this care Time-Based Coding :: [TOTAL MINUTES] spent with patient and on the chart (including review of chart, obtaining history, exam, reviewing outside data, placing orders, documenting exam and treatment plan, and counseling patient) on [DATE]. PROFEE Active Directory Administrator Document charge(s): Yes Charge Codes Subsequent inpatient/observation care: [id number]
[2024-11-28 08:32] LABS: PTT Partial Thromboplastin Tim 35 SECONDS (25.1-36.5)
[2024-11-28] MEDS: HEPARIN DRIP 25,000 UNIT/500 ML IV.SOLN 15.36 UNIT IV (08:50)
[2024-11-28] MEDS: HEPARIN 5,000 UNIT/ML VIAL 4000 UNIT IV (08:50)
[2024-11-28] MEDS: PANTOPRAZOLE 40 MG VIAL IV (08:52)
[2024-11-28] MEDS: ALPRAZolam 0.25 MG TABLET 0.5 MG PO (09:05)
[2024-11-28] MEDS: FUROSEMIDE 40 MG/4 ML VIAL IV (09:06)
[2024-11-28] MEDS: ASPIRIN EC 81 MG TABLET PO (09:07)
[2024-11-28] MEDS: NITROGLYCERIN OINT 1 INCH/GM OINT...G. 0.5 INCH TOP ×2 (09:07→15:31)
[2024-11-28] MEDS: METOPROLOL IR 25 MG TABLET PO ×2 (09:08→15:31)
[2024-11-28] MEDS: VENLAFAXINE ER 75 MG CAP 150 MG PO (09:08)
[2024-11-28] MEDS: SODIUM CHLORIDE 0.9% FLUSH 10 ML IV (09:08)
[2024-11-28] MEDS: OSELTAMIVIR 30 MG CAPSULE PO (09:08)
[2024-11-28] MEDS: methylPREDNISolone 125 MG/2 ML VIAL 60 MG IV (09:44)
--- NOTE | 2024-11-28 10:31 | CM.DPNOTE ---
DCP Note POWER SYSTEM ELECTRICAL ENGINEER reviewed EMR per chart/Carly note, pt on heated high flow. tropes increasing. Per Carroll note, attempted to transfer to higher level of care. Per instrument repair specialist, pt accepted by provider at [facility] however, due to pt's pos for flu A, waiting on private room to be available. CM team will continue to follow closely. CM team will plan to follow clinical course closely in case any DC needs or concerns arise. Alert TCM at vt [facility]
--- NOTE | 2024-11-28 12:22 | P.DS_ITS ---
History of Present Illness History of Present Illness Date Patient Seen: 11/28/24 Chief complaint: Difficulty Breathing Narrative: 64-year-old male, known to me, although he tends to avoid regular/routine health care, seen 3 times in the last 2 years. He does have significant medical problems including coronary disease COPD type 2 diabetes hypertension and depression/anxiety. Patient has been ill for approximately 3 weeks or so. He was assumed he had COVID since it felt much like it felt when he had it before but did not do any testing. He was having a lot of coughing felt like he had fever although did not check that. He was really had no appetite at all he was had maybe 4 or 5 bites of food and very little fluids in the last week. Finally because of his lack of improvement and worsening symptoms, he made an appointment to be seen in the clinic today but when he arrived quite late he was clearly in severe respiratory distress with mottling, etcetera. Clinic staff very appropriately summoned EMS who evaluated him found him to be quite hypoxic gave him nebulizer treatments oxygen and transported him to the ER. In the ER he was found to be quite tachycardic and hypotensive. He was immediately placed on BiPAP with good response. Subsequently with aggressive IV fluid resuscitation that is blood pressure came up in his heart rate went down. He did not require pressors. BiPAP help tremendously and eventually he was able to be weaned off of that and onto nasal cannula oxygen. [place] [address], acute kidney injury with creatinine of 3.27 that improved to 2.93 after fluid resuscitation. Lactate initially of 9.5, dropped to 4, and now 2.0 when most recently checked. Also abnormal LFTs bilirubin. Chest CT angiography demonstrates multifocal pneumonic process bilaterally. He also tested positive for influenza A Patient was admitted for continued treatment. He was given a dose of IV antibiotics in the ER as well as IV steroids Patient does have a history of COPD he has as an albuterol inhaler as needed. Exact status of his respiratory diseases unknown since as above he is an infrequent visitor to the clinic. Also with known coronary disease, with a stent placed into his right coronary in 2015. Patient also with diabetes, most recent hemoglobin A1c performed in March 2023 and was 7.4. He is on no oral or injectable diabetes medication Discharge Providers Provider Date of admission: 11/25/24 19:23 Discharge Date: 11/28/24 Primary care physician: Santi Carroll MD Consults: 11/25/24 21:30 Consult to Cardio/Pulmonary Rehabilitation Routine Comment: Physician Instructions: Evaluate and treat Consult to Discharge Planning Routine Comment: Discharge provider: Santi Carroll MD Summary Hospital Course Discharge Diagnosis: 1. Acute respiratory failure with hypoxia 2. Acute influenza A pneumonia 3. Acute community-acquired pneumonia, organism not identified 4. NSTEMI 5. Acute kidney injury 6. Septic shock 7. Type 2 diabetes 8. Coronary artery disease status post stent placement right coronary artery 2015 9. COPD Hospital Course: As above patient was admitted via the emergency department with significant respiratory distress respiratory failure secondary to influenza A pneumonia least, with evidence of probable bacterial pneumonia based [place] [address] with significant left shift, significant acute kidney injury with a creatinine of 3.27, hypotension etcetera He was resuscitated in the ED, received vigorous IV fluids and oxygen therapy. Creatinine improved with the initial fluid therapies. Patient was able to be maintained with adequate oxygenation on BiPAP. Over the course of several hours we were unable to find a tertiary facility to transfer him to and he improved significantly. He was able to come off of oxygen altogether and blood pressure heart rate etcetera remained stable. He was therefore admitted to ICU. Over the course of the next 24 hours he had slowly worsening respiratory distress with evidence of worsening hypoxia. Chest x-ray demonstrated appearance of bilateral infiltrates and probable pulmonary edema. He had been receiving vigorous IV fluids because of his acute kidney injury which did continued to slowly improve with creatinine dropping to 2.51. He continued on broad-spectrum IV antibiotics as well as Tamiflu for his pneumonia. Patient had a initial troponin of 0.058 upon admission which is indeterminate at our facility. Patient then began to complain of intermittent chest discomfort and troponin increased to 0.171 which is technically abnormal. It remained at this level or up to 0.3-8 over the next 24 hours. Patient's symptoms resolved. However repeat troponin demonstrated further increased at 1.04. At this point he was started on unfractionated intravenous heparin and attempts were started to transfer him to a center with Cardiology. He did have echocardiography performed on the day of admission which demonstrated normal left ventricular function no evidence of valvular dysfunction no wall motion abnormalities. Does have a history of coronary disease with a stent in his right coronary artery placed in 2015 but he was lost to follow-up following that. He does have right bundle branch block on his EKG at baseline and there is no evidence of clear ischemic change on recent ECGs. He was remained hemodynamically stable. However he does need transfer to a center with Cardiology potentially cardiac pharmaceutical laboratory technician and potentially Pulmonary Medicine as well, none of the specialists are available at this institution. As patient's respiratory status declined and chest x-ray demonstrated evidence of possible pulmonary edema he was started on IV furosemide 40 mg b.i.d.. He did produce modest amounts of urine with this. That has no negative effect on his heart rate or blood pressure. That has no improvement in his oxygenation but there was a slight worsening of his renal function with creatinine going back up again. Patient's diabetes adequately controlled with insulin Currently patient is on heated high-flow oxygen requiring 75% FiO2. Heart rate and blood pressure are stable. Cardiac rhythm has been stable. Status at Discharge Cognitive/behavioral status at discharge: oriented Functional status at discharge: bed bound Overall status at discharge: patient is not back to baseline Time Spent with Patient Time spent: Greater than 30 minutes Exam Vital Signs (past 8 hours): - 11/28/24 04:30 11/28/24 04:40 11/28/24 04:50 Temperature Pulse Rate 58 L 74 72 Respiratory Rate 25 H 30 H 30 H Blood Pressure Pulse Oximetry 91 93 94 Oxygen Delivery Method Oxygen Flow Rate Fraction of Inspired Oxygen 11/28/24 05:00 11/28/24 05:10 11/28/24 05:20 Temperature Pulse Rate 55 L 75 65 Respiratory Rate 26 H 32 H 23 Blood Pressure Pulse Oximetry 94 90 L 92 Oxygen Delivery Method Oxygen Flow Rate Fraction of Inspired Oxygen 11/28/24 05:30 11/28/24 05:40 11/28/24 05:50 Temperature Pulse Rate 71 59 L 90 Respiratory Rate 28 H 23 37 H Blood Pressure Pulse Oximetry 94 92 88 L Oxygen Delivery Method Oxygen Flow Rate Fraction of Inspired Oxygen 11/28/24 06:00 11/28/24 06:10 11/28/24 06:20 Temperature Pulse Rate 77 77 61 Respiratory Rate 32 H 27 H 26 H Blood Pressure Pulse Oximetry 93 94 95 Oxygen Delivery Method Oxygen Flow Rate 50 Fraction of Inspired Oxygen 11/28/24 06:30 11/28/24 06:40 11/28/24 06:50 Temperature Pulse Rate 75 80 64 Respiratory Rate 29 H 33 H 27 H Blood Pressure Pulse Oximetry 94 88 L 96 Oxygen Delivery Method Oxygen Flow Rate Fraction of Inspired Oxygen 11/28/24 07:00 11/28/24 07:10 11/28/24 07:18 Temperature Pulse Rate 74 78 74 Respiratory Rate 27 H 30 H 24 Blood Pressure Pulse Oximetry 95 93 Oxygen Delivery Method High Flow Nasal Cannula Oxygen Flow Rate Fraction of Inspired Oxygen 75 11/28/24 07:18 11/28/24 07:20 11/28/24 07:30 Temperature Pulse Rate 74 74 74 Respiratory Rate 24 25 H 26 H Blood Pressure Pulse Oximetry 95 94 95 Oxygen Delivery Method Oxygen Flow Rate Fraction of Inspired Oxygen 11/28/24 07:30 11/28/24 07:40 11/28/24 07:50 Temperature Pulse Rate 73 67 Respiratory Rate 25 H 28 H Blood Pressure Pulse Oximetry 94 94 Oxygen Delivery Method Heated High Flow Oxygen Flow Rate Fraction of Inspired Oxygen 11/28/24 08:00 11/28/24 08:00 11/28/24 08:10 Temperature 98.2 F Pulse Rate 74 74 Respiratory Rate 26 H 29 H Blood Pressure Pulse Oximetry 95 88 L Oxygen Delivery Method Oxygen Flow Rate Fraction of Inspired Oxygen 11/28/24 08:20 11/28/24 08:30 11/28/24 08:40 Temperature Pulse Rate 77 74 80 Respiratory Rate 28 H 34 H 33 H Blood Pressure Pulse Oximetry 97 92 92 Oxygen Delivery Method Oxygen Flow Rate Fraction of Inspired Oxygen 11/28/24 08:50 11/28/24 09:00 11/28/24 09:07 Temperature Pulse Rate 68 61 66 Respiratory Rate 27 H 24 Blood Pressure 143/82 H Pulse Oximetry 93 95 Oxygen Delivery Method Oxygen Flow Rate Fraction of Inspired Oxygen 11/28/24 09:10 11/28/24 09:15 11/28/24 09:15 Temperature Pulse Rate 71 73 Respiratory Rate 31 H 24 Blood Pressure 166/96 H Pulse Oximetry 91 94 Oxygen Delivery Method Oxygen Flow Rate Fraction of Inspired Oxygen 11/28/24 09:20 11/28/24 09:30 11/28/24 09:40 Temperature Pulse Rate 71 63 66 Respiratory Rate 25 H 24 26 H Blood Pressure Pulse Oximetry 91 91 91 Oxygen Delivery Method Oxygen Flow Rate Fraction of Inspired Oxygen 11/28/24 09:50 11/28/24 10:00 11/28/24 10:00 Temperature Pulse Rate 69 59 L Respiratory Rate 30 H 26 H Blood Pressure 140/86 Pulse Oximetry 92 94 Oxygen Delivery Method Oxygen Flow Rate Fraction of Inspired Oxygen 11/28/24 10:10 11/28/24 10:20 11/28/24 10:30 Temperature Pulse Rate 59 L 56 L 57 L Respiratory Rate 25 H 25 H 24 Blood Pressure Pulse Oximetry 93 91 92 Oxygen Delivery Method Oxygen Flow Rate Fraction of Inspired Oxygen 11/28/24 10:40 11/28/24 10:50 11/28/24 10:50 Temperature Pulse Rate 59 L 74 71 Respiratory Rate 24 20 32 H Blood Pressure Pulse Oximetry 92 95 93 Oxygen Delivery Method Oxygen Flow Rate Fraction of Inspired Oxygen 11/28/24 11:00 11/28/24 11:00 11/28/24 11:10 Temperature Pulse Rate 58 L 60 Respiratory Rate 26 H 24 Blood Pressure 142/89 H Pulse Oximetry 95 96 Oxygen Delivery Method Oxygen Flow Rate Fraction of Inspired Oxygen 11/28/24 11:20 11/28/24 11:30 11/28/24 11:40 Temperature Pulse Rate 68 60 58 L Respiratory Rate 29 H 27 H 25 H Blood Pressure Pulse Oximetry 95 94 93 Oxygen Delivery Method Oxygen Flow Rate Fraction of Inspired Oxygen 11/28/24 11:50 11/28/24 12:00 11/28/24 12:00 Temperature Pulse Rate 69 59 L Respiratory Rate 27 H 25 H Blood Pressure 148/83 H Pulse Oximetry 95 91 Oxygen Delivery Method Oxygen Flow Rate Fraction of Inspired Oxygen Fraction of Inspired Oxygen 75 SaO2/FiO2 Ratio 180 Oxygen Delivery Method Heated High Flow Oxygen Flow Rate 50 Objective Labs 11/28/24 04:40 11/28/24 13:13 Labs: Laboratory Results - last 24 hr 11/27/24 11/27/24 11/27/24 12:25 17:22 18:00 WBC RBC Hgb Hct MCV MCH MCHC RDW Plt Count Neut % (Auto) Lymph % (Auto) [place] % (Auto) Eos % (Auto) Baso % (Auto) Lymph # (Auto) [place] # (Auto) Baso # (Auto) Total Counted Seg Neutrophils % Band Neutrophils % Lymphocytes % (Manual) Atypical Lymphs % Monocytes % (Manual) Neutrophils # (Manual) RBC Morphology APTT Sodium Potassium Chloride Carbon Dioxide BUN Creatinine Estimated GFR BUN/Creatinine Ratio Glucose Calcium Total Creatine Kinase 321 H Troponin I 0.220 H* 0.328 H* C. difficile Tox (PCR) Negative for c. diff 11/28/24 11/28/24 04:40 08:15 WBC 18.1 H RBC 3.90 L Hgb 12.5 L Hct 36.6 L MCV 93.7 MCH 32.0 MCHC 34.1 RDW 14.2 Plt Count 201 Neut % (Auto) Not Reportable Lymph % (Auto) Not Reportable [place] % (Auto) Not Reportable Eos % (Auto) Not Reportable Baso % (Auto) Not Reportable Lymph # (Auto) Not Reportable [place] # (Auto) Not Reportable Baso # (Auto) Not Reportable Total Counted 100 Seg Neutrophils % 78.0 H Band Neutrophils % 10.0 H Lymphocytes % (Manual) 7.0 L Atypical Lymphs % 1.0 H Monocytes % (Manual) 4.0 Neutrophils # (Manual) 20058 H RBC Morphology Normal morphology APTT 35 Sodium 136 L Potassium 3.7 Chloride 107 Carbon Dioxide 16 L BUN 50 H Creatinine 2.80 H Estimated GFR 25 L BUN/Creatinine Ratio 17.9 Glucose 166 H Calcium 6.6 L Total Creatine Kinase Troponin I 1.040 H* C. 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) Right shoulder tendonitis (1995) Anxiety (1999) Chronic back pain (2004) Chicken pox (1965) Hemorrhoids (2004) MA (myocardial infarction) (07/18/16) Supraventricular tachycardia (08/13/15) Mixed hyperlipidemia (08/13/15) Recurrent major depressive disorder, in full remission (08/13/15) Type 2 diabetes mellitus without complication (01/18/13) Essential hypertension Surgical History History of colonoscopy Anesthesia History of heart artery stent (07/2016) History of hand surgery (1997) History of shoulder surgery (1995) Status post insertion of drug-eluting stent into right coronary artery for coronary artery disease (09/19/16) Family History Father Hypertension Mental health problem Cirrhosis Heart disease Mother Cancer COPD (chronic obstructive pulmonary disease) Lung disease Grandfather No problems noted. Grandmother No problems noted. Grandmother No problems noted. Sister No problems noted. Social History marital status: unmarried,single number of children: 0 household members: none lives independently: Yes caregiver/support person: No housing: house pets and animals: No education level: other (Bachelors degree, some grad schooling.) occupational status: disabled (Disabled retired.) Previous occupational history: [employer] travel history: over 6 months ago ([place]) leisure activities: games (boolino) and reading Smoking Status: Current every day smoker Tobacco: How many years used: 38 Smokeless tobacco user: other (Cigarettes, Marijuana) quit status: considering quitting second hand exposure: Yes (1st and 2nd hand) alcohol intake: current substance use type: marijuana Discharge Assessment & Plan Assessment and Plan Plan of Treatment: Patient will be discharged to tertiary care center with the availability of Cardiology and Pulmonary Medicine given his acute respiratory failure secondary to infectious etiologies, requiring heated high-flow oxygen at 75% FiO2, as well as his NSTEMI with rising troponin in a patient with a history of known coronary artery disease. In addition he has an acute kidney injury which he is not resolving and would benefit from Nephrology consultation as well Several hours through the course of the day all day-to-day speaking with several transfer centers, and 3 separate credit reporting clerk's were required to achieve this transfer to a tertiary care center. Discharge Plan Discharge Plan Patient Disposition: Xfer Acute Care Hospital Discharge Health Status Multidrug resistant organism: No MDRO Precautions: Droplet and Airborne Diet/Activity/Treatments Diet: Carb-consistent/Diabetic Liquid consistency: Normal/Thin Food texture: Regular Discharge Data Primary Care Provider: Santi Carroll PROFEE Charge Codes Discharge inpatient/observation: [id number]
[2024-11-28] MEDS: INSULIN LISPRO 100 UNIT/ML 3ML VIAL SUBCUT ×2 (13:05→17:05)
[2024-11-28] MEDS: CLOPIDOGREL 75 MG TABLET PO (13:06)
[2024-11-28 13:33] LABS: PTT Partial Thromboplastin Tim 106 SECONDS (25.1-36.5)
[2024-11-28 13:35] LABS: BUN Creatinine Ratio 19.4 (6-22); Blood Urea Nitrogen 54 mg/dL (9-20); Calcium 6.5 mg/dL (8.4-10.2); Carbon Dioxide 19 mmol/L (22-32); Chloride 105 mmol/L (98-107); Estimated Glomerular Filt Rate 25 mL/min (>60); Glucose 182 mg/dL (80-110); HEMOLYSIS < 15 (0-50); Potassium 3.9 mmol/L (3.4-5.1); Sodium 136 mmol/L (137-145)
[2024-11-28 13:47] LABS: Troponin I 0.915 ng/mL (0.01-0.034)
--- NOTE | 2024-11-28 19:13 | PC.NURSE ---
Pt agreeable to transfer to higher level of care. Provider explained need for transfer to pt. Report given to receiving RN at [facility] at approximately 1700. [facility] arrived at 1845. Switched pt to transport monitoring, transport heated high flow, pt O2 92% on same settings as hospital equipment. Sister called, did not answer, may call back for information. Friend Alicja called by pt request, updated on transfer and location of [facility]. Pt departed with [facility] transport at approximately 1910.
== END 2024-11-28 19:10 | disposition short-term general hospital (02) | DRG 871 ==
LOC: ED 19:06 → AC 19:24 → ICU 20:09
PROVIDERS: Admitting Provider Internal Medicine; Emergency Provider Emergency Medicine; PCP Internal Medicine; Referring Provider Emergency Medicine; Visit Provider Internal Medicine
DX: A41.9 Sepsis, unspecified organism (principal); I21.4 Non-ST elevation (NSTEMI) myocardial infarction; J10.01 Influenza due to other identified influenza virus with the same other identified influenza virus pneumonia; J96.01 Acute respiratory failure with hypoxia; R65.21 Severe sepsis with septic shock; J15.9 Unspecified bacterial pneumonia; N17.9 Acute kidney failure, unspecified; J44.0 Chronic obstructive pulmonary disease with (acute) lower respiratory infection; J81.1 Chronic pulmonary edema; I25.10 Atherosclerotic heart disease of native coronary artery without angina pectoris; F17.210 Nicotine dependence, cigarettes, uncomplicated; E11.9 Type 2 diabetes mellitus without complications; I45.10 Unspecified right bundle-branch block; E78.2 Mixed hyperlipidemia; F32.A Depression, unspecified; I10 Essential (primary) hypertension; F41.9 Anxiety disorder, unspecified; Z95.5 Presence of coronary angioplasty implant and graft
CPT/HCPCS: 36415; 36600; 71045; 71275; 80048; 80053; 82550; 82805; 82962; 83036; 83605; 83690; 83735; 83880; 84484; 85007; 85025; 85610; 85730; 87040; 87493; 87633; 87797; 93005; 93010; 93306; 94640; 94660; 94760; 96361; 96365; 96375; 99223; 99233; 99239; 99284; 99291; J0295; J1644; J1650; J1815; J1940; J2470; J2543; J2919; J7613; Q9967

== ENCOUNTER → 2024-12-08 10:09 | Outpatient (CLI) | payer MEDICARE, SELFPAY ==
[2024-11-25 21:30] VITALS: BMI 23.5
[2024-11-27 08:05] VITALS: PULSE 86; RESP 26; O2SAT 94
[2024-12-08 11:05] LABS: Add Manual Diff / Slide Review NO; Basophils Absolute Auto 100 /uL (0-100); Basophils Percent Auto 0.7 % (0-2); Eosinophils Absolute Auto 100 /uL (0-450); Eosinophils Percent Auto 1.1 % (2-4); Hematocrit 27.9 % (41-53); Hemoglobin 9.6 g/dL (13.5-17.5); Lymphocytes Absolute Auto 2100 /uL (1100-4500); Lymphocytes Percent Auto 21.4 % (25-40); Mean Corpuscular HGB Conc 34.5 % (30-36); Mean Corpuscular Volume 95.7 fL (80-100); Monocytes Absolute Auto 1100 /uL (0-900); Monocytes Percent Auto 11.1 % (3-14); Neutrophils Absolute Auto 6500 /uL (1500-7000); Neutrophils Percent Auto 65.7 % (50-75); Platelet Count 316 X10^3/uL (150-400); Red Blood Cell Count 2.92 X10^6/uL (4.5-5.9); Red Cell Distribution Width 15.4 % (11.6-14.8); White Blood Cell Count 9.8 X10^3/uL (4.5-11.0)
[2024-12-08 11:20] LABS: Alanine Aminotransferase 79 IU/L (<50); Albumin 3.6 g/dL (3.5-5.0); Albumin Globulin Ratio 0.9 (1.0-2.8); Alkaline Phosphatase 170 U/L (38-126); Aspartate Aminotransferase 75 IU/L (17-59); BUN Creatinine Ratio 6.3 (6-22); Bilirubin Total 0.8 mg/dL (0.2-1.3); Blood Urea Nitrogen 7 mg/dL (9-20); Calcium 8.9 mg/dL (8.4-10.2); Carbon Dioxide 25 mmol/L (22-32); Chloride 106 mmol/L (98-107); Estimated Glomerular Filt Rate > 60 mL/min (>60); Globulin 3.9 g/dL (1.7-4.1); Glucose 120 mg/dL (80-110); HEMOLYSIS < 15 (0-50); Potassium 4.4 mmol/L (3.4-5.1); Sodium 139 mmol/L (137-145); Total Protein 7.5 g/dL (6.3-8.2)
[2024-12-08 11:21] LABS: HEMOLYSIS < 15 (0-50); Iron 75 ug/dL (49-181)
[2024-12-08 11:34] LABS: Percent Iron Saturation 33 % (20-50); Total Iron Binding Capacity 224 ug/dL (261-462); Transferrin 175 mg/dL (206-381)
== END ==
PROVIDERS: PCP Internal Medicine; Referring Provider Internal Medicine; Visit Provider Internal Medicine
DX: E78.2 Mixed hyperlipidemia (principal); E11.9 Type 2 diabetes mellitus without complications; D64.9 Anemia, unspecified
CPT/HCPCS: 36415; 80053; 83540; 83550; 85025

== ENCOUNTER → 2025-01-19 11:43 | Outpatient (CLI) | payer MEDICARE, SELFPAY ==
[2024-11-25 21:30] VITALS: BMI 23.5
[2024-11-27 08:05] VITALS: PULSE 86; RESP 26; O2SAT 94
[2025-01-19 12:17] LABS: Add Manual Diff / Slide Review NO; Basophils Absolute Auto 100 /uL (0-100); Basophils Percent Auto 0.8 % (0-2); Eosinophils Absolute Auto 200 /uL (0-450); Eosinophils Percent Auto 2.5 % (2-4); Hematocrit 39.4 % (41-53); Hemoglobin 13.1 g/dL (13.5-17.5); Lymphocytes Absolute Auto 2600 /uL (1100-4500); Lymphocytes Percent Auto 29.2 % (25-40); Mean Corpuscular HGB Conc 33.2 % (30-36); Mean Corpuscular Hemoglobin 31.5 PG (26-34); Mean Corpuscular Volume 95.2 fL (80-100); Monocytes Absolute Auto 1000 /uL (0-900); Neutrophils Absolute Auto 5000 /uL (1500-7000); Neutrophils Percent Auto 56.5 % (50-75); Platelet Count 298 X10^3/uL (150-400); Red Blood Cell Count 4.14 X10^6/uL (4.5-5.9); Red Cell Distribution Width 15.1 % (11.6-14.8); White Blood Cell Count 8.8 X10^3/uL (4.5-11.0)
[2025-01-19 12:22] LABS: Hemoglobin A1C% w Est Avg Glu 5.7 % (4.0-6.0)
[2025-01-19 12:49] LABS: Alanine Aminotransferase 41 IU/L (<50); Albumin 4.3 g/dL (3.5-5.0); Albumin Globulin Ratio 1.4 (1.0-2.8); Alkaline Phosphatase 128 U/L (38-126); Aspartate Aminotransferase 60 IU/L (17-59); Bilirubin Total 0.4 mg/dL (0.2-1.3); Blood Urea Nitrogen 10 mg/dL (9-20); Carbon Dioxide 28 mmol/L (22-32); Chloride 100 mmol/L (98-107); Estimated Glomerular Filt Rate > 60 mL/min (>60); Glucose 137 mg/dL (80-110); HEMOLYSIS < 15 (0-50); Potassium 4.4 mmol/L (3.4-5.1); Sodium 138 mmol/L (137-145); Total Protein 7.3 g/dL (6.3-8.2)
== END ==
PROVIDERS: PCP Internal Medicine; Referring Provider Internal Medicine; Visit Provider Internal Medicine
DX: I10 Essential (primary) hypertension (principal); E11.9 Type 2 diabetes mellitus without complications; D64.9 Anemia, unspecified
CPT/HCPCS: 36415; 80053; 83036; 85025